=== PATIENT | female | born 1970 | race Caucasian/White ===

== ENCOUNTER 2016-10-31 05:26 | Day surgery (SDC) ==
[2016-10-25 10:19] LABS: HEMATOCRIT 45.5 % (37.0-47.0); HEMOGLOBIN 14.8 g/dL (12.0-16.0); MCHC 32.5 g/dL (33-37); MCV 95.2 FL (81-99); MPV 8.7 FL (7.4-10.4); RBC 4.78 XMIL (4.2-5.4)
[2016-10-25 11:04] LABS: AGAP 13; BUN 5 mg/dL (8-22); CALCIUM 9.3 mg/dL (8.8-10.2); CHLORIDE 102 mmol/L (98-107); COSMO 281; POTASSIUM 3.2 mmol/L (3.5-5.1); SODIUM 143 mmol/L (136-145); TCO2 28 mmol/L (25-35)
[2016-10-31] MEDS ORDERED: REGLAN ONE (05:43)
[2016-10-31] MEDS ORDERED: VALIUM ONE (05:43)
[2016-10-31] MEDS ORDERED: PEPCID ONE (05:43)
[2016-10-31] MEDS ORDERED: LR 1,000 ML ONE ×2 (05:44→10:58)
[2016-10-31] MEDS ORDERED: KEFZOL 1 GM/D5W 50 ML ONE (05:44)
[2016-10-31] MEDS ORDERED: DUONEB (A & A) INH ONE (06:19)
[2016-10-31] MEDS ORDERED: XYLOCAINE 1% ONE (06:40)
[2016-10-31] MEDS ORDERED: MARCAINE 0.25% PF/EPI 1:200,000 ONE (06:40)
--- NOTE | 2016-10-31 07:44 | Diag Imaging Result Document ---
PROCEDURE NAME: CHEST-1 VIEW - 10/31/2016 PORTABLE CHEST X-RAY: COMPARISON: 09/04/2016. FINDINGS: Stable ill-defined infiltrate in the right lung apex. Stable retro hilar pulmonary nodular opacity that is difficult to perceive on chest x-ray. No new or focal infiltrates. No pneumothorax or pleural effusion. IMPRESSION: No acute disease or change from prior.
[2016-10-31] MEDS: MORPHINE ONE ×4 (08:35→08:50)
--- NOTE | 2016-10-31 08:49 | OPERATIVE NOTE ---
PROCEDURE DATE: 10/31/2016 PREOPERATIVE DIAGNOSIS: Left lower lobe lung cancer. POSTOPERATIVE DIAGNOSIS: Left lower lobe lung cancer. PROCEDURE: 1. Mediastinoscopy with mediastinal lymph node biopsy. 2. Bronchoscopy. ESTIMATED BLOOD LOSS: Less than 5 mL. COMPLICATIONS: None. ANESTHESIA: General. SURGEON: John Kumar MD OPERATIVE FINANCIAL ANALYST: MD Dr. Lauri Carlos was present through the bronchoscopy and mediastinoscopy to facilitate identification of anatomy and exposure. OPERATIVE INDICATIONS: A 46-year-old female with a confirmed left lower lobe lung cancer that is resectable. She had some enlarged mediastinal lymph nodes. Bronchoscopy, mediastinoscopy was indicated for further staging and plans for formal resection. OPERATIVE FINDINGS: The distal bronchi of the right upper, right middle, and right lower lobe were all normal with usual anatomy. On the left side, the left upper lobe lingular branches and the left lower lobe bronchi were all normal out to the most distal visualized aspects. There were scant tracheal secretions, but no bronchial plugging. Findings at time of mediastinoscopy: There was an enlarged anthracotic node right at the bifurcation of the mainstem bronchi. There was no other visualized adenopathy noted. Multiple biopsies of this lesion were taken. DESCRIPTION OF PROCEDURE: Risks, benefits, and alternatives were discussed with the patient, she consented to the procedure. She was taken to the operating room, placed in supine position. General anesthesia was induced without complication. After a time-out was performed, we performed bronchoscopy through her single-lumen endotracheal tube, inspecting all lobes of the lungs bilaterally. There were no intraluminal lesions with findings as above. After satisfactory bronchoscopy, her bilateral neck and chest were prepped and draped with Betadine in the usual fashion. We placed her in reverse Trendelenburg position, extended her neck, and placed shoulder bump to facilitate exposure. After again confirming time-out, a low transverse incision was made with electrocautery. We carried this down through the platysma. We divided the strap muscles in the midline pretracheal fascia. We then bluntly entered the mediastinum posterior to the innominate artery, [facility] here, introducing the mediastinoscope. Using the Kittner, we bluntly dissected the tissue off the trachea anteriorly. We went posterior to the innominate. We did see the aortic arch and the azygos vein on the right was easily identified. We went down and were able to clearly identify the lymph node that was enlarged on her previous CT scan. We dissected this out, confirmed it was anthracotic and enlarged. We aspirated this to confirm that it was not a vascular structure, it was not. We then took multiple biopsies, near completely removing this node and passed these off for permanent pathology. We packed the wound with a Ray-Dee gauze, left this for several minutes, it was noted to be hemostatic. We again inspected the wound, there was no bleeding noted. After this, we closed the strap muscles along the midline with interrupted 3-0 Vicryl sutures, closed the platysma transversely with interrupted 3-0 Vicryl sutures, closed the skin with 4-0 Monocryl. Dermabond was applied. She tolerated procedure well, transferred to PACU, where we will get a chest x-ray.
[2016-10-31] MEDS ORDERED: NORCO-7.5 PO PRN (09:19)
[2016-10-31] MEDS ORDERED: ZOFRAN IV PRN (09:19)
[2016-10-31] MEDS ORDERED: DIPRIVAN 1% ONE (09:44)
[2016-10-31] MEDS ORDERED: FENTANYL ONE (09:44)
[2016-10-31] MEDS ORDERED: NORCO-7.5 ONE (09:53)
--- NOTE | 2016-10-31 10:02 | Diag Imaging Result Document ---
PROCEDURE NAME: CHEST-PORTABLE - 10/31/2016 PORTABLE CHEST X-RAY 10/31/2016, 0845 HOURS: COMPARISON: 0644 hours. FINDINGS: Stable infiltrate/scarring at the right apex. No new infiltrates. No pneumothorax or other air collections. Heart size is normal. IMPRESSION: No complication or change from prior.
[2016-10-31 10:16] VITALS: BP 128/88
[2016-10-31] MEDS ORDERED: ZEMURON ONE (10:58)
[2016-10-31] MEDS ORDERED: ROBINUL ONE (10:58)
[2016-10-31] MEDS ORDERED: NEOSTIGMINE ONE (10:58)
[2016-10-31] MEDS ORDERED: XYLOCAINE-MPF 2% ONE (10:58)
[2016-10-31] MEDS ORDERED: ZOFRAN ONE (10:58)
[2016-10-31] MEDS ORDERED: QUELICIN (DOSE) ONE (10:58)
[2016-10-31] MEDS ORDERED: DECADRON ONE (10:58)
== END 2016-10-31 10:40 | disposition home or self-care (01) ==
LOC: OPS 05:26
PROVIDERS: ATTEND Surgery
DX: C34.32 Malignant neoplasm of lower lobe, left bronchus or lung (principal); R59.0 Localized enlarged lymph nodes; Z80.1 Family history of malignant neoplasm of trachea, bronchus and lung; F17.210 Nicotine dependence, cigarettes, uncomplicated; F31.9 Bipolar disorder, unspecified; J44.9 Chronic obstructive pulmonary disease, unspecified; M19.90 Unspecified osteoarthritis, unspecified site; F32.9 Major depressive disorder, single episode, unspecified; G89.29 Other chronic pain; K44.9 Diaphragmatic hernia without obstruction or gangrene; Z79.899 Other long term (current) drug therapy; Z79.1 Long term (current) use of non-steroidal anti-inflammatories (NSAID)
CPT/HCPCS: 71010; 80048; 85027; 88305; J0330; J0690; J1100; J2270; J2405; J3010; J7120; J2710

== ENCOUNTER 2016-11-20 03:37 | Inpatient (IN) ==
--- NOTE | 2016-11-19 13:05 | EKG Report ---
Test Performed on : 11/19/2016 1:05:06 PM Test Reason : PAT Blood Pressure : / mmHG Vent. Rate : 093 BPM Atrial Rate : 093 BPM P-R Int : 144 ms QRS Dur : 076 ms QT Int : 380 ms P-R-T Axes : 075 083 072 degrees QTc Int : 472 ms Normal sinus rhythm. Normal ECG When compared with ECG of 15-APR-2016 06:44, No significant change was found Confirmed by Lb STALLWORTH, Colten Huntley ([id number]) on 11/21/2016 5:34:41 PM
[2016-11-19 13:29] LABS: MANUAL DIFF NEEDED? NO
[2016-11-19 13:43] LABS: BASO% 0.6 % (0.0-0.8); EOS# 0.65 X1000 (0.0-0.7); EOS% 6.5 % (0.0-10.0); HEMATOCRIT 39.6 % (37.0-47.0); HEMOGLOBIN 13.1 g/dL (12.0-16.0); IMM GRAN# 0.05 X1000 (0.0-0.04); IMM GRAN% 0.5 % (0.0-0.5); LYMPH# 3.39 X1000 (1.2-3.4); LYMPH% 34.1 % (20.5-51.1); MCH 31.2 PG (27-31); MCHC 33.1 g/dL (33-37); MCV 94.3 FL (81-99); MONO# 0.79 X1000 (0.11-0.59); MPV 8.5 FL (7.4-10.4); NEUT% 50.3 % (42.2-75.2); PLT 453 X1000 (130-400)
[2016-11-19 14:02] LABS: INR 0.98; PROTIME 10.3 Seconds (9.2-11.7); PTT 28.2 Seconds (22.0-36.0)
--- NOTE | 2016-11-19 14:14 | Diag Imaging Result Document ---
PROCEDURE NAME: CHEST-2 VIEWS - 11/19/2016 COMPARISON: 10/31/2016. FINDINGS: There is stable scarring at the right lung apex. The known nodular density in the medial aspect of the left lower lobe abutting the fissure seen on prior chest CTs is again identified but only on the lateral view. No new consolidations are identified. Cardiac silhouette is stable. IMPRESSION: Stable right apical scarring and nodular density in the left lower lobe seen only on the lateral image. Note that this nodule has been seen on previous chest CTs and has been biopsied in the past.
[2016-11-19 14:28] LABS: AGAP 14; BUN 6 mg/dL (8-22); CALCIUM 8.6 mg/dL (8.8-10.2); CHLORIDE 99 mmol/L (98-107); COSMO 275; POTASSIUM 3.2 mmol/L (3.5-5.1); SODIUM 140 mmol/L (136-145); TCO2 27 mmol/L (25-35)
[2016-11-20] MEDS ORDERED: REGLAN ONE ×2 (06:58→07:37)
[2016-11-20] MEDS ORDERED: KEFZOL 1 GM/D5W 1 GM/50 ML IVPB ONE (06:58)
[2016-11-20] MEDS ORDERED: PEPCID ONE ×2 (06:58→07:37)
[2016-11-20] MEDS ORDERED: LR 1,000 ML ONE (07:38)
[2016-11-20] MEDS ORDERED: DUONEB (A & A) INH ONE ×2 (07:56→12:11)
[2016-11-20] MEDS ORDERED: MARCAINE 0.25% PF ONE (11:10)
[2016-11-20] MEDS ORDERED: EXPAREL 1.3% ONE (11:10)
[2016-11-20] MEDS ORDERED: COLACE PO SCH (12:09)
[2016-11-20 12:23] LABS: URINE CULTURE NEEDED? NO; URINE MICRO REVIEW NEEDED? NO; URINE SOURCE CATH
[2016-11-20 12:26] LABS: BE 2.8 mmoll (-3.0-3.0); BLOOD TYPE ARTERIAL; METHB 1.5 % (0.0-1.5); PCO2(98.6) 40 mmHg (35-45); PO2(98.6) 249 mmHg (60-100); SAMPLE BLOOD; SRATE 10 BPM; THB 11.6 g/dL (11.5-17.4); TVOL 550 mL; pH(98.6) 7.44 (7.35-7.45)
[2016-11-20 12:27] LABS: DRAW SITE OTHER; MODALITY VENTILATOR
[2016-11-20 12:28] LABS: ALLEN TEST NO
[2016-11-20 12:32] LABS: MANUAL DIFF NEEDED? NO
--- NOTE | 2016-11-20 12:33 | OPERATIVE NOTE ---
PROCEDURE DATE: 11/20/2016 PREOPERATIVE DIAGNOSIS: Left lower lobe lung cancer. POSTOPERATIVE DIAGNOSIS: Left lower lobe lung cancer. PROCEDURE PERFORMED: 1. Left lower lobectomy. 2. Bronchoscopy. ESTIMATED BLOOD LOSS: 50 mL. ANESTHESIA: General. COMPLICATIONS: None. DRAINS: Anterior and posterior 32-Slovenian chest tube. HIP HOP ARTIST: Dr. Harris. Dr. Harris was present for the entirety of the case. Facilitated exposure and identification of anatomy. INDICATIONS: This is a 46-year-old female with incidentally noted left lower lobe cancer confirmed to be adenocarcinoma. She underwent staging including mediastinoscopy and bronchoscopy that showed no evidence of metastatic disease. Resection was indicated. Pulmonary function cardiac workup were adequate. OPERATIVE FINDINGS: There was a mass in the left posterior and cephalad lower lobe of lung with no evidence of metastatic disease. OPERATIVE NOTE: Risks, benefits, alternatives discussed with patient. She consented to the procedure. She was taken to the preoperative area where surgery to be performed was confirmed. She was taken to the operating room, placed initially supine and pre incisional antibiotics were administered. She was intubated with a single-lumen tube. Time out performed. After induction of general anesthesia, bronchoscopy was performed. There were some thick secretions left upper and lower lobe. These were suctioned to clear. The right side was visible. There is no evidence of intra bronchial lesions consistent with her previous bronchoscopy. After this there were attempts to convert to a double-lumen tube by anesthesia. A time out was performed as well. However, given her small airways and the smallest double lumen endotracheal tube we had was not possible , so she was reintubated with a single-lumen tube and this was right mainstemmed and was done successfully and reproducibly. After this, we placed her in right lateral decubitus position with an axillary roll and a pad between her knees. All bony prominence were padded and placed in neutral position. The beanbag was inflated she was secured with silk tape. Her left chest was prepped with chlorhexidine solution and draped in usual fashion. A left thoracotomy incision was made after confirming anatomic landmarks and this was carried down to the level the ribs. We counted the rib spaces and entered the 6th intercostal space after dividing the muscle. We will make care to protect the neurovascular bundles, held respirations in the chest in controlled fashion with care to protect underlying structures. There is some inflammatory adhesions that we lysed and we took down the inferior pulmonary ligament with electrocautery up to the level the inferior pulmonary vein. There is near complete fissure. After satisfactory mobilizing of the lung we placed it back in anatomic position. I identified the pulmonary artery within the fissure itself and dissected out the branches to the lower lobe protecting the lingular branch which is readily visualized. There is a cephalad branch that we doubly ligated with a 2-0 silk suture and divided. We then dissected out the main inferior pulmonary artery branch, doubly ligated this and individually ligated the more distal branches leaving a large cuff of the pulmonary artery here. This divided all the arterial branches to the lower lobe and we turned our attention posteriorly dissecting out the pulmonary vein to the lower lobe in its entirety, and we encircled this with a right angle clamp, placed an umbilical tape around this and using a gold load 30 mm Endo HUMZA stapler. We divided this, there was good hemostasis noted and a good healthy cuff. We turned our attention back to the fissure. There were some inflammatory adhesions from where the tumor was to the upper lobe. We divided these this to create a bit of an air leak in the posterior left upper lobe. This was small and not amenable to wedge resection here or suture repair. We turned our attention anteriorly. There was an area that we need to complete the fissure, dissect down the bronchus to the lower lobe and encircled this. There was an area of lung that was divided using a purple load 30 mm stapler here as well. This completed the dissection of the bronchus using a black load 60 mm Endo-HUMZA stapler. We clamped the lower lobe bronchus, withdrew the endotracheal tube and confirmed that the upper lobe did insufflate and divided this. There is good closure and good sealing of the bronchus at this time. We irrigated the chest. There is no leaking from the bronchial stump. Hemostasis was noted. We turned our attention back this air leak in the left posterior upper lobe we used the thrombin gel glue to patch this with significant improvement, if not resolution of this air leak. We also applied this to the bronchial stump and the staple line on the more anterior fissure staple line. The upper lobe inflated well. There some anterior adhesions that we took down to facilitate expansion of the chest cavity. The lung was perfused and a tidaling well. Then approximately 3 rib spaces below the incision placed an anterior an anterior and posterior 32-Slovenian chest tube and secured these with half inch 0- silk sutures. We then turned our attention to closure of the chest. The neurovascular bundle, like I said was protectively injected with Marcaine Exparel solution along the costal bundles starting posteriorly and along the ribs themselves. There is no obvious fracture of the ribs during retraction. We used the self-retaining rib advertising designer for retraction during the case. Three holes are drilled the anteromedial and posteriorly along the 7th rib and using #2 Vicryl sutures, these ribs were encircled per without impingement of the neurovascular bundles and a rib approximator was used and the rib was reapplied approximated. We then closed the muscle with a running # 1 Vicryl suture and the anterior and the superficial fascia with a running 0 Vicryl. We irrigated the superficial wound, closed the skin with basil. Placed our chest tubes to Pleuravac suction device and applied a sterile dressing. She tolerated the procedure well. Given her somnolent state, we elected to transfer to the ICU intubated and plan is to extubate this evening. Chest x-ray and labs will be obtained in the recovery area. I spoke with the family cc: Bruno Kumar MD [facility]
[2016-11-20 12:38] LABS: BASO% 0.3 % (0.0-0.8); EOS# 0.38 X1000 (0.0-0.7); EOS% 3.3 % (0.0-10.0); HEMATOCRIT 34.8 % (37.0-47.0); HEMOGLOBIN 11.6 g/dL (12.0-16.0); IMM GRAN# 0.04 X1000 (0.0-0.04); IMM GRAN% 0.3 % (0.0-0.5); LYMPH# 2.83 X1000 (1.2-3.4); LYMPH% 24.5 % (20.5-51.1); MCH 31.3 PG (27-31); MCHC 33.3 g/dL (33-37); MCV 93.8 FL (81-99); MONO# 0.76 X1000 (0.11-0.59); MONO% 6.6 % (1.7-9.3); MPV 8.4 FL (7.4-10.4); PLT 414 X1000 (130-400); RBC 3.71 XMIL (4.2-5.4)
[2016-11-20 12:46] LABS: UR EPITHELIAL CELLS <10 /HPF (<10); URINE RBC <10 /HPF (<10); URINE WBC <10 /HPF (<10)
[2016-11-20 12:47] LABS: BILIRUBIN URINE NEGATIVE (NEGATIVE); BLOOD URINE TRACE (NEGATIVE); COLOR YELLOW; GLUCOSE URINE NEGATIVE (NEGATIVE); LEUKOCYTES URINE NEGATIVE (NEGATIVE); NITRITE URINE NEGATIVE (NEGATIVE); PH URINE 6.5; PROTEIN URINE NEGATIVE (NEGATIVE); SP GRAVITY URINE < 1.005; TURBIDITY URINE CLEAR (CLEAR); URINE BACTERIA NEGATIVE /HPF; UROBILINOGEN URINE 2 mg/dL (NORMAL)
[2016-11-20 12:49] LABS: INR 1.05; PROTIME 11.1 Seconds (9.2-11.7); PTT 28.1 Seconds (22.0-36.0)
[2016-11-20 12:55] LABS: AGAP 9; BUN 4 mg/dL (8-22); CALCIUM 7.6 mg/dL (8.8-10.2); CHLORIDE 103 mmol/L (98-107); COSMO 271; MAGNESIUM 1.2 mg/dL (1.5-2.7); POTASSIUM 2.6 mmol/L (3.5-5.1); SODIUM 136 mmol/L (136-145); TCO2 24 mmol/L (25-35)
[2016-11-20] MEDS: MORPHINE IV PRN ×5 (13:08→23:55)
[2016-11-20] MEDS: OFIRMEV 1000 MG/ISOTONIC SOLN 1,000 MG/100 ML BOTTLE IV SCH ×3 (13:11→23:55)
[2016-11-20] MEDS: PROTONIX IV SCH (13:11)
[2016-11-20] MEDS ORDERED: COLACE PO PRN (13:11)
--- NOTE | 2016-11-20 13:23 | Diag Imaging Result Document ---
PROCEDURE NAME: CHEST-PORTABLE - 11/20/2016 SINGLE FRONTAL RADIOGRAPH OF THE CHEST: COMPARISON: 11/19/2016. FINDINGS: There is a recently placed ET tube. The tip projects over the trachea and above the rich at about the T3 level. There are new metallic basil overlying the left chest wall, and there has been placement of 2 thoracostomy tubes. One of the tube tips projects over the mid left lung zone. The other projects over the apex. No appreciable pneumothorax can be identified. However, there is a small amount of subcutaneous gas overlying the chest wall on the left. Right apical scarring is again noted. No new consolidations are identified. IMPRESSION: Interval placement of ET tube and dual chest tubes on the left as described.
[2016-11-20] MEDS ORDERED: DIPRIVAN 1% 1,000 MG/100 ML BOTTLE ONE (13:25)
[2016-11-20] MEDS ORDERED: POTASSIUM CHLORIDE 60 MEQ in NS 500 ML IV ONE (13:29)
[2016-11-20] MEDS ORDERED: MAGNESIUM SULFATE IV ONE (13:29)
[2016-11-20] MEDS ORDERED: MAGNESIUM SULFATE 4 GM/S.W.I. 4 GM/100 ML IVPB IV ONE (15:00)
[2016-11-20] MEDS ORDERED: FENTANYL ONE (16:11)
[2016-11-20] MEDS ORDERED: VERSED ONE (16:11)
[2016-11-20] MEDS ORDERED: LUBRIFRESH PM OPH OINTMENT ONE (16:29)
[2016-11-20] MEDS ORDERED: NEO-SYNEPHRINE ONE (16:29)
[2016-11-20] MEDS ORDERED: NORCURON ONE (16:30)
[2016-11-20] MEDS ORDERED: LR 2,000 ML ONE (16:30)
[2016-11-20] MEDS ORDERED: XYLOCAINE-MPF 2% ONE (16:30)
[2016-11-20] MEDS ORDERED: QUELICIN (DOSE) ONE (16:30)
--- NOTE | 2016-11-20 18:23 | CONSULTATION ---
DATE OF CONSULTATION: 11/20/2016 REQUESTING PHYSICIAN: Dr. John Kumar. REASON FOR CONSULTATION: Respiratory failure after surgery. HISTORY OF PRESENT ILLNESS: Ms. Mariee is a 46-year-old white female with greater than 60 pack year history for tobacco, ongoing tobacco use, history of bipolar disorder, who was diagnosed with an adenocarcinoma involving the left lower lobe 09/04/2016. She subsequently underwent a mediastinoscopy which was negative. PET scan by report revealed no evidence of metastatic disease. The patient was admitted to the hospital and underwent a left lower lobectomy today. She was somnolent by report earlier today possibly related to her medications and she showed up to the hospital 2 hours late. Surgery was performed and she has now been transferred back to the intensive care unit. PAST MEDICAL HISTORY: 1. Recurrent bipolar disorder with psychotic features with prior admission to [facility]. 2. COPD with ongoing tobacco use. 3. Status post cholecystectomy. 4. Bilateral tubal ligation with partial hysterectomy. SOCIAL HISTORY: Ongoing tobacco use. Occasional alcohol use noted in prior admission. FAMILY HISTORY: Positive for schizophrenia, depression, arthritis and lung cancer. REVIEW OF SYSTEMS: Cannot be obtained. PHYSICAL EXAMINATION: General: Reveals a thin white female who appears older than her stated age of 46. Vital signs: BP 142/94, heart rate 77, respiration rate 16, oxygen saturation 100%. HEENT: Pupils are equal and reactive. Oropharynx evaluation is limited with endotracheal tube in place. Neck: Supple. Chest: Chest x-ray reveals 2 chest tubes in good position. There is thin serosanguineous fluid draining and has movement with respiration. Cardiac Exam: Regular rate. Abdomen: Soft without hepatosplenomegaly. Extremities: Without edema. LABORATORIES: Chest x-ray reveals good reexpansion of the remaining lung on the left with chest tubes in good position. Arterial blood gas reveals pH 7.44, pCO2 of 40, PO2 of 249. Carboxyhemoglobin level in September of this year was as high as 11.6, carboxyhemoglobin level following surgery remains slightly elevated at 2.8. IMPRESSION: A 46-year-old with lung cancer status post left lower lobectomy, ongoing tobacco use, bipolar disorder. She has had surgery earlier today. She was late for her surgery and there was a concern that she may have over-medicated herself. This would not be unexpected for a patient with her underlying psychiatric history. It is currently 6 o'clock in the evening and I am reluctant to stop her medications and evaluate her for extubation at this juncture. She will likely need to be followed closely and with frequent medication adjustments immediately following extubation. RECOMMENDATION: 1. Continue mechanical ventilation through the evening. 2. Evaluate for extubation 1st thing tomorrow morning. 3. Check sputum for C and S. 4. Continue bronchodilators. 5. Additional recommendations pending hospital course. cc: MD Bruno Alejandre MD
[2016-11-20] MEDS: DIPRIVAN 1% 1,000 MG/100 ML BOTTLE IV SCH (18:32)
[2016-11-20] MEDS: LR 1,000 ML IV SCH (19:46)
[2016-11-20] MEDS: DUONEB (A & A) INH SCH (22:49)
[2016-11-21] MEDS: DIPRIVAN 1% 1,000 MG/100 ML BOTTLE IV SCH ×2 (00:37→05:17)
[2016-11-21] MEDS: DUONEB (A & A) INH SCH ×4 (03:32→18:52)
[2016-11-21] MEDS: MORPHINE IV PRN ×3 (03:36→21:48)
[2016-11-21 04:45] LABS: ALLEN TEST YES; BE 1.9 mmoll (-3.0-3.0); BLOOD TYPE ARTERIAL; DRAW SITE R RADIAL; METHB 1.4 % (0.0-1.5); O2(CT) 16.9 mL/dL (15.0-23.0); PCO2(98.6) 41 mmHg (35-45); PO2(98.6) 74 mmHg (60-100); SAMPLE BLOOD; SAO2 97.9 % (95.0-100.0); SRATE 10 BPM; THB 12.7 g/dL (11.5-17.4); TVOL 500 mL; pH(98.6) 7.42 (7.35-7.45)
[2016-11-21 04:46] LABS: MODALITY VENTILATOR
[2016-11-21] MEDS: OFIRMEV 1000 MG/ISOTONIC SOLN 1,000 MG/100 ML BOTTLE IV SCH ×4 (05:17→23:47)
[2016-11-21 05:51] LABS: MANUAL DIFF NEEDED? NO
[2016-11-21 05:53] LABS: BASO% 0.1 % (0.0-0.8); EOS# 0.06 X1000 (0.0-0.7); EOS% 0.4 % (0.0-10.0); HEMATOCRIT 38.1 % (37.0-47.0); HEMOGLOBIN 12.8 g/dL (12.0-16.0); IMM GRAN# 0.04 X1000 (0.0-0.04); IMM GRAN% 0.2 % (0.0-0.5); LYMPH# 1.79 X1000 (1.2-3.4); LYMPH% 10.7 % (20.5-51.1); MCH 31.4 PG (27-31); MCHC 33.6 g/dL (33-37); MCV 93.6 FL (81-99); MONO# 0.95 X1000 (0.11-0.59); MONO% 5.7 % (1.7-9.3); MPV 9.1 FL (7.4-10.4); NEUT% 82.9 % (42.2-75.2); PLT 438 X1000 (130-400); RBC 4.07 XMIL (4.2-5.4)
[2016-11-21 06:03] LABS: INR 1.01; PROTIME 10.6 Seconds (9.2-11.7); PTT 23.8 Seconds (22.0-36.0)
[2016-11-21 06:32] LABS: AGAP 12; BUN 3 mg/dL (8-22); CALCIUM 7.8 mg/dL (8.8-10.2); CHLORIDE 103 mmol/L (98-107); COSMO 276; MAGNESIUM 1.8 mg/dL (1.5-2.7); POTASSIUM 3.3 mmol/L (3.5-5.1); SODIUM 139 mmol/L (136-145); TCO2 24 mmol/L (25-35)
[2016-11-21] MEDS ORDERED: POTASSIUM CHLORIDE 40 MEQ/SWI 40 MEQ/100 ML IVPB IV ONE (07:13)
[2016-11-21] MEDS ORDERED: MAGNESIUM SULFATE IM ONE (07:13)
--- NOTE | 2016-11-21 07:52 | Diag Imaging Result Document ---
PROCEDURE NAME: CHEST-PORTABLE - 11/21/2016 SINGLE FRONTAL RADIOGRAPH OF THE CHEST: COMPARISON: 11/20/2016. FINDINGS: ET tube and dual left chest tubes are in approximately stable position. There has been development of a small left pleural effusion at the base. There is adjacent atelectasis and/or infiltrate. No other new consolidation is identified. Cardiac silhouette is stable. IMPRESSION: Development of a small left basilar effusion with adjacent atelectasis and/or infiltrate. It is essentially stable, otherwise.
[2016-11-21] MEDS ORDERED: MAGNESIUM SULFATE 2 GM/S.W.I. 2 GM/50 ML IVPB IV ONE (08:00)
--- NOTE | 2016-11-21 08:00 | PROGRESS NOTE ---
DATE: 11/21/2016 SUBJECTIVE: Hemodynamically stable overnight. Sedation was somewhat of an issue at times but she is resting comfortably on propofol with p.r.n. morphine this morning. OBJECTIVE: Vital Signs: Afebrile. No tachycardia. Heart rate was mildly elevated at 102 this morning but it was normal when I was in the room this morning. Blood pressure 160/102. Oxygen saturation 98% on 30%, PEEP of 6. General: She is sedated. Chest: Left chest dressing is clean, dry, intact. Is and Os: There is minimal serosanguineous drainage, 100 out of the posterior tube, less than 30 out of the anterior tube, serosanguineous. No air leak to -20 suction. Laboratory Data: White count 16, hematocrit is stable at 38, platelets are 438,000. ABG, 7.42, 41, 74, 26.3. Potassium is 3.3. Magnesium is 1.8 despite repletion. Creatinine 0.5. ASSESSMENT/PLAN: A 46-year-old female with left lower lobe lung cancer, status post left lower lobectomy. She is doing well. No leak on her tube. Minimal ventilator settings with good gas exchange. Minimal chest tube output. Chest x-ray looks good. There is good expansion. There is a little bit of an effusion at the base, not unexpected. The patient will be ready for extubation this morning. Dr. Beal is following. Otherwise, she will need aggressive pulmonary toileting as her pulmonary function tests were marginal coming into this. I have repleted her electrolytes. We will begin to advance her diet once extubated successfully. I appreciate Dr. Beal's help. cc: Bruno Kumar MD
[2016-11-21] MEDS ORDERED: MORPHINE IV STA (08:13)
[2016-11-21] MEDS ORDERED: MORPHINE IV ONE (08:38)
[2016-11-21] MEDS ORDERED: BENADRYL IV PRN (09:21)
[2016-11-21] MEDS ORDERED: NARCAN IV PRN (09:21)
[2016-11-21] MEDS: MORPHINE PCA IV PRN ×4 (10:16→23:45)
[2016-11-21] MEDS: LR 1,000 ML IV SCH ×2 (10:16→23:51)
[2016-11-21] MEDS: PROZAC PO SCH (10:33)
[2016-11-21] MEDS ORDERED: POTASSIUM CHLORIDE 40 MEQ in 1/2 NS 250 ML IV ONE (11:15)
[2016-11-21] MEDS: PROTONIX IV SCH (12:45)
[2016-11-22] MEDS: MORPHINE IV PRN ×6 (01:54→22:58)
[2016-11-22] MEDS ORDERED: ATIVAN IV ONE (02:01)
[2016-11-22] MEDS: DUONEB (A & A) INH SCH ×5 (03:08→22:14)
[2016-11-22 03:56] LABS: ALLEN TEST YES; BE 3.4 mmoll (-3.0-3.0); BLOOD TYPE ARTERIAL; DRAW SITE R RADIAL; METHB 1.8 % (0.0-1.5); O2(CT) 16.1 mL/dL (15.0-23.0); PO2(98.6) 106 mmHg (60-100); SAMPLE BLOOD; SAO2 99.5 % (95.0-100.0); THB 11.9 g/dL (11.5-17.4); pH(98.6) 7.32 (7.35-7.45)
[2016-11-22 03:59] LABS: MODALITY BI PAP; PCO2(98.6) 60 mmHg (35-45)
[2016-11-22] MEDS ORDERED: STERILE WATER INJ. INJ ONE (04:20)
[2016-11-22] MEDS ORDERED: GEODON IM ONE (04:20)
[2016-11-22] MEDS: OFIRMEV 1000 MG/ISOTONIC SOLN 1,000 MG/100 ML BOTTLE IV SCH ×3 (05:52→17:02)
[2016-11-22 06:39] LABS: ALLEN TEST YES; BE 3.8 mmoll (-3.0-3.0); BLOOD TYPE ARTERIAL; DRAW SITE R RADIAL; METHB 1.6 % (0.0-1.5); O2(CT) 16.1 mL/dL (15.0-23.0); PO2(98.6) 84 mmHg (60-100); SAMPLE BLOOD; SAO2 98.2 % (95.0-100.0); pH(98.6) 7.33 (7.35-7.45)
[2016-11-22 06:41] LABS: MODALITY BI PAP; PCO2(98.6) 59 mmHg (35-45)
[2016-11-22] MEDS ORDERED: QUELICIN ONE (06:55)
[2016-11-22] MEDS ORDERED: AMIDATE ONE (06:55)
[2016-11-22] MEDS: DIPRIVAN 1% 1,000 MG/100 ML BOTTLE ONE ×2 (07:00→07:05)
[2016-11-22] MEDS ORDERED: NORCURON ONE (07:14)
[2016-11-22 07:15] LABS: HEMATOCRIT 32.4 % (37.0-47.0); HEMOGLOBIN 10.4 g/dL (12.0-16.0); MCH 31.1 PG (27-31); MCHC 32.1 g/dL (33-37); MPV 8.6 FL (7.4-10.4); RBC 3.34 XMIL (4.2-5.4)
[2016-11-22] MEDS ORDERED: SODIUM CHLORIDE 0.9% 10 ML ONE (07:15)
--- NOTE | 2016-11-22 07:22 | Diag Imaging Result Document ---
PROCEDURE NAME: CHEST-PORTABLE - 11/22/2016 PORTABLE CHEST X-RAY: COMPARISON: 11/21/2016. FINDINGS: Stable double left chest tubes. There is near-complete opacification of the left hemithorax. There is a significant worsening, ill-defined infiltrate throughout the right lung. No significant mediastinal shift. IMPRESSION: Significant worsening from prior. Near-complete opacification of the left hemithorax is worrisome for atelectasis associated with mucus plugging. Worsening infiltrate throughout the right lung as well, probably edema.
[2016-11-22] MEDS ORDERED: VANCOMYCIN IV PER PHARMACY MISC SCH (07:45)
--- NOTE | 2016-11-22 08:30 | PROGRESS NOTE ---
DATE: 11/22/2016 SUBJECTIVE: I was called this morning. The patient had developed some altered mental status, agitation overnight. She was given Ativan for concern for withdrawal symptoms with history of benzodiazepines and likely alcohol abuse in the past and was also given some Geodon. She had persistent agitation, worsening of her respiratory status related to this. Started on BiPAP 100%, and ABG showed CO2 retention. Attempted aggressive pulmonary toileting. Breathing treatments failed to improve her respiratory status at the bed side. She was ultimately intubated. Chest x- ray showed mucous plugging with dense consolidation of her left lobe. OBJECTIVE: Vital Signs: She has been afebrile at 97.0 temperature, pulse in the low 100s. Blood pressure 100/64. Oxygen saturation: Would desaturate to the low to mid 80s. All flow, however, was maintained in the low 90s on 100% BiPAP. General: She is agitated. Not following commands, but was alert and is protecting her airway. Cardiovascular: Sinus tach. Pulmonary: Tachypneic. Agitated, shallow respirations. Not participating in pulmonary toilet. Chest: Left chest dressings are clean, dry, and intact. Chest tubes with serosanguineous output. Minimal amounts, 175 recorded out of #1 tube and 140 out of #2. This is serous. No air leak noted. Both are to -20 suction. Extremities: No lower extremity edema. Integument: Otherwise warm and dry. LABS: White count is 17, hematocrit is down to 32. ABG this morning 7.33, 59, 84, 27 with a base excess of 3.8. This was just before intubation. ASSESSMENT AND PLAN: 1. This is a 46-year-old female, status post left lower lobectomy, now postop day 2. 2. She has had worsening of her mental status. She does have a history of bipolar disorder. 3. Chronic pain requiring high-dose narcotics. 4. Anxiety. 5. Chronic benzodiazepine use. It appears, based on her chest x-ray, that she has had mucous plugging of her left lung. Will proceed with intubation and bronchoscopy. Intubation performed by anesthesia. She was given etomidate, succinylcholine and a 7.0 tube, and was intubated without difficulty. No significant hypotension or complications developed. She had end-tidal CO2 and normal airway pressures. Attempts to contact the family throughout this were unsuccessful. They were not readily available and this was performed in an emergent fashion. Procedural note for bronchoscopy to follow. Will plan to protect BAL at the time of the bronchoscopy and initiate antibiotic therapy for presumed pneumonia and continue ventilator support. cc: Bruno Kumar MD
--- NOTE | 2016-11-22 08:35 | OPERATIVE NOTE ---
PROCEDURE DATE: 11/22/2016 PREOPERATIVE DIAGNOSES: 1. Respiratory failure. 2. Left lung mucous plugging. POSTOPERATIVE DIAGNOSES: 1. Respiratory failure. 2. Left lung mucous plugging. PROCEDURE PERFORMED: Bronchoscopy with bronchoalveolar lavage. PROVIDER: Bruno Kumar MD ESTIMATED BLOOD LOSS: Zero. COMPLICATIONS: Zero. INDICATIONS: This is a 46-year-old female, status post left lower lobectomy for adenocarcinoma of the lung. She developed worsening respiratory status. One chest x-ray showed dense consolidation and plugging of her left lung, and bronchoscopy was indicated after intubation. OPERATIVE FINDINGS: Dense mucous plugging of the left upper lobe and lingula branches of the left side. There was good closure of the left lower lobe bronchus with a visualized staple line and no necrosis here. Right lung was clear. SPECIMENS: Bronchoalveolar lavage from left upper lobe. OPERATIVE NOTE: The patient was emergently intubated. Respiratory failure and chest x-ray showed mucous plugging. As such, emergent intubation and bronchoscopy was indicated. Family was not available, despite multiple attempts to contact. As such, we proceeded with emergent bronchoscopy. A time-out was performed between nursing and surgical staff and all agreed. It was confirmed that she was on a ventilator, rate and 100% Fi02. She was oxygenating well. She was on full telemetry monitoring with blood pressure, telemetry, and pulse ox monitoring. We did redose vecuronium 10 mg prior to starting the procedure. The endotracheal tube adapter was placed. The bronchoscope was advanced into the left lung. The trachea appeared normal. The left upper lobe showed dense mucous plugging of the lingular and upper lobe branches. These the suctioned until clear. Sterile water was flushed, suctioned out, trapped in a Lukens trap, and sent for Gram stain and culture. The left lower lobe bronchus was well occluded with no necrosis here. We then inspected the right upper, right middle, and right lower lobe. These were all clear. We confirmed that the endotracheal tube was in good position at the conclusion of the case. There were no identified complications. She tolerated it well. There was no change in her vital signs or pulse ox throughout this procedure. Stat chest x-ray and ABG will be ordered. Following, we will begin to wean her ventilator support over the next couple hours. cc: Bruno Kumar MD [facility]
[2016-11-22] MEDS: ZOSYN 3.375 GM/NS 3.375 GM/50 ML IVPB IV SCH ×3 (08:36→20:01)
[2016-11-22] MEDS: D5 1/2 NS + KCL 20 MEQ 1,000 ML IV SCH ×2 (08:36→18:19)
[2016-11-22] MEDS ORDERED: VANCOMYCIN 1.65 GM in NS 250 ML IV ONE (09:00)
[2016-11-22 09:04] LABS: AGAP 10; ALBUMIN 2.3 g/dL (3.5-5.0); ALKALINE PHOSPHATASE 123 U/L (32-104); BUN 4 mg/dL (8-22); CALCIUM 7.6 mg/dL (8.8-10.2); CHLORIDE 102 mmol/L (98-107); COSMO 276; GOT 30 U/L (10-30); GPT 8 U/L (10-36); MAGNESIUM 1.6 mg/dL (1.5-2.7); POTASSIUM 3.7 mmol/L (3.5-5.1); SODIUM 140 mmol/L (136-145); TCO2 28 mmol/L (25-35); TOTAL BILIRUBIN 0.93 mg/dL (0.20-1.00); TOTAL PROTEIN 5.1 g/dL (6.3-8.3)
--- NOTE | 2016-11-22 09:04 | Diag Imaging Result Document ---
PROCEDURE NAME: CHEST-PORTABLE - 11/22/2016 AP PORTABLE CHEST, 11/22/2016 AT 0800 HOURS: FINDINGS: There is an endotracheal tube with its tip at the thoracic inlet and 2 chest tubes in the left hemithorax. There is volume loss on the left. There is extensive alveolar opacification throughout the left lung. There appears to be more volume loss but slightly better pneumatization in the left lung since 11/22/2016. There are patchy alveolar opacities in the right upper and lower lobes consistent with pulmonary edema. The endotracheal tube is at the thoracic inlet. IMPRESSION: Atelectasis and/or pneumonia in the left lung. Postsurgical changes on the left. Patchy pulmonary edema in the right upper and lower lobes.
[2016-11-22] MEDS: PROZAC PO SCH (09:44)
[2016-11-22] MEDS: ATIVAN IV PRN ×3 (09:54→23:14)
[2016-11-22 10:10] LABS: INR 1.11; PROTIME 11.7 Seconds (9.2-11.7)
[2016-11-22 10:17] LABS: ALLEN TEST YES; BE 3.2 mmoll (-3.0-3.0); BLOOD TYPE ARTERIAL; DRAW SITE R RADIAL; METHB 0.7 % (0.0-1.5); O2(CT) 15.9 mL/dL (15.0-23.0); PO2(98.6) 54 mmHg (60-100); SAMPLE BLOOD; SRATE 16 BPM; THB 12.5 g/dL (11.5-17.4); TVOL 400 mL; pH(98.6) 7.37 (7.35-7.45)
[2016-11-22 10:18] LABS: MODALITY VENTILATOR; PCO2(98.6) 51 mmHg (35-45)
[2016-11-22] MEDS ORDERED: NS 250 ML ONE (10:25)
--- NOTE | 2016-11-22 11:05 | CONSULTATION ---
DATE OF CONSULTATION: 11/22/2016 CONSULTING PHYSICIAN: Dr. John Kumar. CONSULTING REASON: Possible opiate withdrawal. HISTORY OF PRESENT ILLNESS: Ms. Mariee is a 46-year-old, female with a history of chronic pain, on chronic opiate therapy, depression and bipolar disorder, and a recent diagnosis with adenocarcinoma of the left lower lung. She was admitted to the hospital yesterday for a scheduled bronchoscopy and left lower lobectomy. This was performed by Dr. Beal, Dr. Kumar, and Dr. Harris. She was intubated for the bronchoscopy. She had successful bronchoscopy and left lower lobectomy, and had chest tubes placed by surgery. She was transferred to the ICU and overnight the patient began becoming agitated with tachycardia and she was bucking the ventilator. We were consulted for possible withdrawal as she has a history of chronic narcotic therapy. This morning, a chest x-ray was consistent with mucus plugging on the left. Dr. Kumar subsequently performed another bronchoscopy and the patient was intubated. Bronchoscopy revealed fairly severe mucous plugging in the left lung. This was suctioned until clear. Dr. Beal is following for pulmonary and critical care management. The patient is on broad-spectrum antibiotics. Currently, she is intubated and on high doses of propofol but is still awake and fighting the ventilator. She has p.r.n. morphine and Ativan frequently. Her vital signs are stable. We have been asked to follow along for possible opiate withdrawal. PAST MEDICAL HISTORY: 1. Chronic pain, on chronic narcotic therapy. 2. COPD. 3. Nicotine dependence. 4. Bipolar and depression. 5. Recent bronchoscopy and left lower lobectomy. 6. Recent admission to [facility] for psychotic features. SURGICAL HISTORY: She has had a cholecystectomy, bilateral tubal ligation with partial hysterectomy, and a hemorrhoidectomy. SOCIAL HISTORY: The patient smokes a pack a day. Per record review, she uses heavy amounts of prescribed narcotics but does not appear to have any illicit history of drug use. It looks like she also has occasional alcohol use. FAMILY HISTORY: Significant for schizophrenia, depression, lung cancer, and arthritis. REVIEW OF SYSTEMS: Unable to be obtained currently secondary to intubation. HOME MEDICATIONS: Xanax 0.25 mg p.o. as needed, Prozac 20 mg daily, oxycodone 30 mg 4 times a day, phenazopyridine 95 mg t.i.d., Seroquel 200 mg at bedtime. ALLERGIES: Aspirin, codeine, and Lasix. PHYSICAL EXAMINATION: Vital Signs: Blood pressure is 100/64, heart rate is 101, respiratory rate is 16, O2 saturation 99% on mechanical ventilation. Temperature is 97 degrees. General: This is a chronically ill-appearing, 46-year-old, female, lying in the hospital bed, intubated and in somewhat mild to moderate distress. Neurologic: The patient is actually awake with her eyes open spontaneously. She did follow commands and there does appear to be no focal deficits. HEENT: Head is atraumatic and normocephalic. Her pupils are equal, round, and reactive to light. Oral mucosa is dry. ET tube is noted. Trachea is midline. Chest: Severely diminished throughout with crackles and wheezes over the entire left lung zone. Chest tubes with dressings clean, dry, and intact noted to the left lung. CV: Tachycardic but regular. S1 and S2 are noted. GI: Soft and nondistended. Bowel sounds are hypoactive. Extremities: Without edema, clubbing, or cyanosis. Pulses are palpable bilaterally. LABORATORY DATA: A.m. labs, WBC 17.83, hemoglobin 10, hematocrit 32.4, platelet count is 304,000. PT 11.7, INR 1.11. PH 7.37, CO2 51, O2 54, bicarb 27.3. Sodium 140, potassium 3.7, chloride 102, CO2 28, anion gap 10, BUN 4, creatinine 0.4, calcium 7.6, phosphorus 1.9. Magnesium 1.6. Total bilirubin 0.93, ALT 8, alkaline phosphatase 123. Protein 5.1. UA is negative for any acute process. ASSESSMENT AND PLAN: 1. Acute hypoxemic respiratory failure: Multifactorial. Dr. Beal is following for ventilator management. Dr. Kumar performed a bronchoscopy earlier today with successful removal of mucous plugging. The patient is also on antibiotics and breathing treatments for apparent pneumonia as well. We will continue to follow with chest x-rays and arterial blood gases daily, and defer any ventilator management to pulmonary critical care. 2. Opioid withdrawal: The patient is currently receiving adequate withdrawal medications. We will monitor this closely. If she continues to need high doses of opiates intravenous push, we would consider an intravenous drip. 3. Chronic obstructive pulmonary disease: Continuing management per pulmonary with antibiotics, breathing treatments, and aggressive pulmonary toilet. 4. Worsening anemia: Likely secondary to recent lobectomy. We are going to check iron studies, and trend her hemoglobin and hematocrit daily. We will treat accordingly. 5. Nicotine dependence: We will also place the patient on nicotine patch. 6. History of bipolar and depression: Continue her home medications down the nasogastric tube once that is placed. 7. Deep venous thrombosis prophylaxis will be provided with sequential compression devices and TEDs given her recent lobectomy and anemia. She is also on Protonix for intensive care unit prophylaxis. We would like to thank you for this consultation. We will follow along with you. Dictated by MAGALI Medeiros for Jesse Riddle MD cc: MAGALI Medeiros MD R. Tyler Harney, MD
[2016-11-22] MEDS: DIPRIVAN 1% 1,000 MG/100 ML BOTTLE IV SCH ×4 (11:27→23:29)
[2016-11-22 11:28] LABS: IRON SATURATION 13 %; TIBC 212 ug/dL; TOTAL IRON 28 ug/dL (49-151); UNBOUND IRON 184 ug/dL (112-346)
[2016-11-22 11:29] LABS: FREE T4 0.82 ng/dL (0.93-1.70)
[2016-11-22] MEDS: PROTONIX IV SCH (12:30)
[2016-11-22] MEDS: SODIUM CHLORIDE 0.9% INJ SCH (12:30)
[2016-11-22] MEDS: NICODERM PATCH TD SCH (12:30)
--- NOTE | 2016-11-22 12:46 | Diag Imaging Result Document ---
PROCEDURE NAME: CHEST/ABD TUBE PLACEMENT - 11/22/2016 AP CHEST AND ABDOMEN FOR NG TUBE PLACEMENT: FINDINGS: The NG tube tip is in the distal stomach or duodenum. The 2 chest tubes remain in place on the left. There is apparently some improvement in pneumatization of the left lung compared to the previous study of 0800 hours. IMPRESSION: Improved pneumonia or pulmonary edema on the left.
[2016-11-22] MEDS: NEUTRA-PHOS PO SCH ×2 (15:00→18:08)
[2016-11-22] MEDS: MUCOMYST 20% INH SCH ×2 (18:47)
[2016-11-22] MEDS: VANCOMYCIN 1.25 GM in NS 250 ML IV SCH (21:14)
[2016-11-23] MEDS: OFIRMEV 1000 MG/ISOTONIC SOLN 1,000 MG/100 ML BOTTLE IV SCH ×5 (00:03→17:27)
[2016-11-23] MEDS: MORPHINE IV PRN ×5 (02:04→20:28)
[2016-11-23] MEDS: ZOSYN 3.375 GM/NS 3.375 GM/50 ML IVPB IV SCH ×4 (02:06→19:38)
[2016-11-23] MEDS: DUONEB (A & A) INH SCH ×6 (02:33→23:28)
[2016-11-23 04:03] LABS: ALLEN TEST YES; BE 2.7 mmoll (-3.0-3.0); BLOOD TYPE ARTERIAL; DRAW SITE R RADIAL; METHB 1.7 % (0.0-1.5); O2(CT) 16.3 mL/dL (15.0-23.0); PO2(98.6) 211 mmHg (60-100); SAMPLE BLOOD; SAO2 99.5 % (95.0-100.0); SRATE 16 BPM; THB 11.7 g/dL (11.5-17.4); TVOL 400 mL; pH(98.6) 7.35 (7.35-7.45)
[2016-11-23 04:05] LABS: MODALITY VENTILATOR; PCO2(98.6) 53 mmHg (35-45)
[2016-11-23] MEDS: ATIVAN IV PRN ×3 (04:34→20:28)
[2016-11-23] MEDS: D5 1/2 NS + KCL 20 MEQ 1,000 ML IV SCH ×3 (04:41→17:31)
[2016-11-23] MEDS: DIPRIVAN 1% 1,000 MG/100 ML BOTTLE IV SCH ×4 (04:46→20:27)
[2016-11-23 05:04] LABS: MANUAL DIFF NEEDED? NO
[2016-11-23 05:06] LABS: BASO% 0.2 % (0.0-0.8); EOS# 0.66 X1000 (0.0-0.7); EOS% 4.5 % (0.0-10.0); HEMATOCRIT 33.5 % (37.0-47.0); HEMOGLOBIN 10.6 g/dL (12.0-16.0); IMM GRAN# 0.04 X1000 (0.0-0.04); IMM GRAN% 0.3 % (0.0-0.5); LYMPH# 1.33 X1000 (1.2-3.4); MCH 30.7 PG (27-31); MCHC 31.6 g/dL (33-37); MCV 97.1 FL (81-99); MONO# 0.59 X1000 (0.11-0.59); MPV 9.3 FL (7.4-10.4); PLT 351 X1000 (130-400); RBC 3.45 XMIL (4.2-5.4)
[2016-11-23 05:24] LABS: AGAP 10; ALKALINE PHOSPHATASE 120 U/L (32-104); BUN 5 mg/dL (8-22); CALCIUM 7.6 mg/dL (8.8-10.2); CHLORIDE 106 mmol/L (98-107); COSMO 283; GOT 31 U/L (10-30); GPT 9 U/L (10-36); MAGNESIUM 1.5 mg/dL (1.5-2.7); POTASSIUM 3.5 mmol/L (3.5-5.1); SODIUM 142 mmol/L (136-145); TCO2 26 mmol/L (25-35); TOTAL BILIRUBIN 0.37 mg/dL (0.20-1.00); TOTAL PROTEIN 5.2 g/dL (6.3-8.3)
--- NOTE | 2016-11-23 07:59 | Diag Imaging Result Document ---
PROCEDURE NAME: CHEST-PORTABLE - 11/23/2016 SINGLE FRONTAL RADIOGRAPH OF THE CHEST: COMPARISON: 11/22/2016. FINDINGS: The ET tube is in stable position. There has apparently been placement of a left PICC line. The tip appears to project just below the atriocaval junction and is likely in the right atrium. An NG tube projects below the diaphragm and out of the field of view. Dual left chest tube is stable. Patchy infiltrates on the right and infiltrate and/or atelectasis at the left lung base is stable. Cardiac silhouette is stable. IMPRESSION: 1. Placement of left PICC line with the tip likely just within the right atrium. 2. Otherwise, essentially stable chest.
[2016-11-23] MEDS: MUCOMYST 20% INH SCH ×2 (08:21→19:44)
[2016-11-23] MEDS: VANCOMYCIN 1.25 GM in NS 250 ML IV SCH ×2 (08:47→21:39)
[2016-11-23] MEDS: NICODERM PATCH TD SCH (08:48)
[2016-11-23] MEDS: PROZAC PO SCH (08:48)
--- NOTE | 2016-11-23 10:19 | PROGRESS NOTE ---
DATE: 11/23/2016 SUBJECTIVE: Hemodynamically stable overnight. Improved agitation, on the ventilator with weaning settings. OBJECTIVE: Vital Signs: Temperature is 99.5 degrees, pulse is low 100s, blood pressure 102/59, oxygen saturation is 100%. She is on 60%, PEEP of 8. General: She is sedated , mildly agitated appearing in the bed, kind of twisting. Chest: Left chest, the dressing is clean, dry, and intact. Chest tube output is serous. There are no air leaks, they are to -20 suction. The posterior tube is putting out more than the anterior tube, but even then it has put out right at 1 liter since it has been in. Extremities: No lower extremity edema. DIAGNOSTIC DATA: White count is down to 14; hematocrit 33, which has been stable; platelets 351,000. ABG 7.35, 53, 211, 27. Creatinine 0.4, potassium is 3.5, magnesium is 1.5. ASSESSMENT AND PLAN: A 46-year-old female, status post left lower lobectomy, reintubated for mucous plugging in the left upper lobe, now status post bronchoscopy. Chest x- ray shows good expansion of the left lung. No significant pneumothorax. Hazy opacity in the right lower lung base. Bronchoalveolar lavage specimens obtained at the time of the bronchoalveolar lavage show normal minh currently, but the final results are pending. She is on antibiotics for presumptive pneumonia. 1. She is on nutritional support. We will continue this. 2. She is on PPI and Lovenox. . 3. She has a Padilla catheter in place while she is intubated. 4. I have water sealed her chest tubes, and we check a chest x-ray at noon, but I will begin to decrease her IV fluids since she is on tube feeds. Hopefully, we can wean her ventilator today, and if her mental status allows, we can plan for extubation maybe tomorrow. 5. She is on Mucomyst, A and A nebulizers. 6. She is given p.r.n. morphine for pain and Ofirmev. 7. She is on her Prozac. 8. I will resume her Seroquel today. cc: Bruno Kumar MD MTDD
[2016-11-23 10:21] LABS: HEPATITIS PROFILE ACUTE SEE COMMENTS
[2016-11-23] MEDS ORDERED: POTASSIUM PHOSPHATE 21 MMOL in NS 250 ML IV ONE (11:30)
--- NOTE | 2016-11-23 11:57 | PROGRESS NOTE ---
DATE: 11/23/2016 SUBJECTIVE: This patient is still on mechanical ventilation and sedated, no acute events overnight. The urine output is adequate and she is tolerating the tube feeding. Pulmonary Department is following this patient as well as Surgery Department. OBJECTIVE: Vital Signs: Temperature 98.7 degrees, pulse 101, respiratory rate 17, blood pressure 137/102 O2 saturation 100% on mechanical ventilation. 70% oxygen flow. No clubbing, no all were normal no hole but will go up to 0 point we will go home with home we will hold. HEENT: Head normocephalic. No trauma. PERRLA. Neck: Supple. No JVD. No masses. Central trachea. Chest: The left side has a dressing that is clean. I do not see any abnormality. There is a serous drainage from the chest tube. Decreased breath sounds at the level of the left lower part of the chest and rhonchi bilaterally but mostly at the level of the right lower lung and left upper lobe lung. Abdomen: Soft, nontender, nondistended. No hepatosplenomegaly. Extremities: No edema. No clubbing. No cyanosis. Neurological: The patient is sedated and intubated. LABORATORY: WBC 14.7, hemoglobin 10.6, hematocrit 33.5, platelets 351,000, sodium 142, potassium 3.5, chloride 106, bicarbonate 26, BUN 5, creatinine 0.4, glucose 147, calcium 7.6, phosphorus 1.8. ASSESSMENT AND PLAN: 1. Left lower lung cancer status post left lower lobectomy, this patient has been reintubated secondary to mucus plugging in the left upper lobe, now status post bronchoscopy. Chest x-ray looks a little bit better compared with yesterday. We will continue with the same management for now. The pulmonary department is following this patient. 2. Acute hypoxemic respiratory failure. This is multifactorial. Continue with mechanical ventilation. 3. Opioid withdrawal. This patient is currently receiving adequate withdrawal medication. We will continue to monitor closely. 4. COPD. Continue management per pulmonary with antibiotics and breathing treatment and aggressive pulmonary toilet. 5. Anemia, likely secondary to recent lobectomy. We will continue to follow. 6. Nicotine dependence. We will continue with nicotine patch. 7. History of bipolar and depression. Continue with home medications. 8. DVT prophylaxis. Continue with SCDs and SOPHIA hose and GI prophylaxis. This patient is intubated and we will continue with Protonix. 9. Nutritional status. This patient is tolerating tube feeding, without any residual. CRITICAL CARE TIME: 30 minutes. cc: MD Bruno Gibson MD
[2016-11-23] MEDS: PROTONIX IV SCH (13:20)
--- NOTE | 2016-11-23 13:39 | Diag Imaging Result Document ---
PROCEDURE NAME: CHEST-PORTABLE - 11/23/2016 PORTABLE CHEST X-RAY AT 1300 HOURS: COMPARISON: 0500 hours. FINDINGS: Stable double left chest tubes. Stable endotracheal tube, nasogastric tube, and left PICC line. No significant pneumothorax. Stable volume loss on the left with slight infiltrate/atelectasis at the left base. Significant infiltrate throughout the right lung diffusely. Heart size remains normal. IMPRESSION: No significant change from prior.
[2016-11-24] MEDS: OFIRMEV 1000 MG/ISOTONIC SOLN 1,000 MG/100 ML BOTTLE IV SCH ×4 (00:20→17:35)
[2016-11-24] MEDS: ATIVAN IV PRN ×4 (00:27→22:26)
[2016-11-24] MEDS: MORPHINE IV PRN ×3 (00:27→22:30)
[2016-11-24] MEDS: DIPRIVAN 1% 1,000 MG/100 ML BOTTLE IV SCH ×3 (01:14→10:26)
[2016-11-24] MEDS: D5 1/2 NS + KCL 20 MEQ 1,000 ML IV SCH ×2 (02:32→17:31)
[2016-11-24] MEDS: ZOSYN 3.375 GM/NS 3.375 GM/50 ML IVPB IV SCH ×4 (02:32→19:41)
[2016-11-24] MEDS: DUONEB (A & A) INH SCH ×6 (03:19→22:56)
[2016-11-24 04:23] LABS: ALLEN TEST YES; BE 9.3 mmoll (-3.0-3.0); BLOOD TYPE ARTERIAL; DRAW SITE R RADIAL; METHB 2.2 % (0.0-1.5); O2(CT) 7.3 mL/dL (15.0-23.0); PCO2(98.6) 44 mmHg (35-45); PO2(98.6) 127 mmHg (60-100); SAMPLE BLOOD; SAO2 99.5 % (95.0-100.0); SRATE 16 BPM; THB 5.2 g/dL (11.5-17.4); TVOL 400 mL; pH(98.6) 7.49 (7.35-7.45)
[2016-11-24 04:27] LABS: MODALITY VENTILATOR
[2016-11-24 04:52] LABS: MANUAL DIFF NEEDED? NO
[2016-11-24 05:32] LABS: AGAP 10; BUN 5 mg/dL (8-22); CALCIUM 8.1 mg/dL (8.8-10.2); CHLORIDE 106 mmol/L (98-107); COSMO 285; POTASSIUM 2.9 mmol/L (3.5-5.1); SODIUM 144 mmol/L (136-145); TCO2 28 mmol/L (25-35)
[2016-11-24 06:02] LABS: BASO% 0.3 % (0.0-0.8); EOS# 0.77 X1000 (0.0-0.7); EOS% 5.7 % (0.0-10.0); HEMATOCRIT 31.2 % (37.0-47.0); HEMOGLOBIN 10.1 g/dL (12.0-16.0); IMM GRAN# 0.04 X1000 (0.0-0.04); IMM GRAN% 0.3 % (0.0-0.5); LYMPH# 1.85 X1000 (1.2-3.4); LYMPH% 13.6 % (20.5-51.1); MCH 31.1 PG (27-31); MCHC 32.4 g/dL (33-37); MONO# 0.72 X1000 (0.11-0.59); MONO% 5.3 % (1.7-9.3); MPV 9.2 FL (7.4-10.4); NEUT% 74.8 % (42.2-75.2); PLT 385 X1000 (130-400); RBC 3.25 XMIL (4.2-5.4)
[2016-11-24] MEDS ORDERED: MAGNESIUM SULFATE 2 GM/S.W.I. 2 GM/50 ML IVPB IV ONE (06:56)
[2016-11-24] MEDS: MUCOMYST 20% INH SCH ×2 (08:13→19:55)
[2016-11-24] MEDS: VANCOMYCIN 1.25 GM in NS 250 ML IV SCH (08:52)
[2016-11-24] MEDS: POTASSIUM CHLORIDE 20 MEQ/SWI 20 MEQ/100 ML IVPB IV SCH ×2 (08:52→11:55)
[2016-11-24] MEDS: NICODERM PATCH TD SCH (08:52)
[2016-11-24] MEDS: PROZAC PO SCH (08:57)
--- NOTE | 2016-11-24 09:18 | Diag Imaging Result Document ---
PROCEDURE NAME: CHEST-PORTABLE - 11/24/2016 PORTABLE CHEST X-RAY: COMPARISON: 11/23/2016. FINDINGS: Stable double left chest tubes. Stable endotracheal tube and nasogastric tube. Stable left PICC line. There is improvement in the hazy infiltrate throughout the right lung. Slight worsening hazy infiltrate at the left lung base with some probable effusion. No pneumothorax. IMPRESSION: Mixed change from prior, with overall some improvement.
--- NOTE | 2016-11-24 11:06 | PROGRESS NOTE ---
DATE: 11/24/2016 SUBJECTIVE: Stable overnight. Propofol has been held. Tube feed has been held. Plan is for possible extubation. She is following commands and is waking up well this morning. OBJECTIVE: No fevers. Some tachycardia overnight in the 110s, but it is 90 this morning. Blood pressure is 92/61, oxygen saturation 100% down to PEEP of 8 with 40% FiO2. General: She is moving all of her extremities this morning but still somewhat sedated. Minimal ventilator settings, starting on the weaning protocol. Her left chest dressing is clean, dry and intact. There is no air leak in her tube and serous drainage is noted, but this is tapering off on water seal. DIAGNOSTIC DATA: On review of her labs, white count is down to 13, hematocrit stable at 31. ABG shows 7.42, 44, 127 and 32. Potassium down to 2.9. Creatinine 0.4. Chest x-ray shows good expansion of the left lung with no consolidation and good position of her tubes. ASSESSMENT AND PLAN: 1. This is a 46-year-old female status post left lower lobectomy complicated by mucus plugging, requiring intubation and bronchoscopy. Chest x-ray is very clear. She is doing well, and there is no air leak in her tubes. We plan for extubation today per the Pulmonary Team and then over the next 24 hours, we will begin discontinuing her chest tubes. She has been on enteral support, and pending extubation, we will either resume tube feeds or start her on a diet. 2. Agitation, her underlying narcotics and psychiatric history have complicated her ventilator wean and her hospital course thus far, but overall I think she is doing very well from a surgical standpoint. cc: Bruno Kumar MD
[2016-11-24] MEDS: PROTONIX IV SCH (11:56)
[2016-11-24] MEDS: HALDOL IV PRN ×2 (12:35→19:38)
--- NOTE | 2016-11-24 13:13 | PROGRESS NOTE ---
DATE: 11/24/2016 SUBJECTIVE: This patient is still on mechanical ventilation and sedated. We did a wean trial today, but she got tachypneic with agitation. The urine output is adequate, and she is tolerating tube feedings. Pulmonary department is following this patient. OBJECTIVE: Vital signs: Temperature 97.3, pulse 90, respiratory rate 19, blood pressure 92/61, oxygen saturation 93 on mechanical ventilation. HEENT: Head normocephalic, no trauma, CARLOS ALBERTO. Neck: No JVD, no masses. Central trachea. Chest: Left side has a dressing that is clean. I do not see any abnormality. She is still with 2 chest tubes without any complication. Breath sounds at the level of the left lower part of the chest and rhonchi bilaterally, but mostly at the level of the right lower lung and left upper lung. Abdomen: Soft, nontender, nondistended, no hepatosplenomegaly. Extremities: No edema, no clubbing, no cyanosis. Neurological: The patient is sedated and intubated. LABORATORY: WBC 13.5, hemoglobin 10.1, hematocrit 31.2, platelets 385. Sodium 144, potassium 2.9, chloride 106, bicarbonate 28, BUN 5, creatinine 0.4, glucose 113, calcium 8.1. ASSESSMENT AND PLAN: 1. Left lower lung cancer status post left lower lobectomy. This patient has been reintubated secondary to mucous plugging in the left upper lobe, now status post bronchoscopy. Chest x-ray looks a little bit better compared with the previous days. Will continue with the same management for now. Pulmonary department is following this patient. 2. Acute hypoxemic respiratory failure, multifactorial. Continue with mechanical ventilation. 3. Hypokalemia. Will replace the potassium today. 4. Opiate withdrawal. This patient is currently receiving adequate withdrawal medication. Will continue to monitor closely. 5. Chronic obstructive pulmonary disease. Continue management per Pulmonary with antibiotics and breathing treatment and aggressive pulmonary toilet. 6. Anemia, likely secondary to recent lobectomy. Continue to monitor. The hemoglobin and hematocrit have been stable. 7. Nicotine dependence. Continue with nicotine patch. 8. History of bipolar disorder and depression. Continue home medications. 9. DVT prophylaxis. Continue with SCDs and SOPHIA hose and GI prophylaxis. 10.This patient is intubated, and will continue with Protonix. 11.Nutritional status. This patient is tolerating tube feedings without any residual. Continue with the same treatment for now. Critical care time 30 minutes. cc: MD Bruno Gibson MD
[2016-11-24 13:17] LABS: ALLEN TEST NO; BE 5.3 mmoll (-3.0-3.0); BLOOD TYPE ARTERIAL; DRAW SITE R BRACHIAL; METHB 1.6 % (0.0-1.5); O2(CT) 14.5 mL/dL (15.0-23.0); PCO2(98.6) 38 mmHg (35-45); PO2(98.6) 86 mmHg (60-100); SAMPLE BLOOD; SAO2 98.5 % (95.0-100.0); THB 10.7 g/dL (11.5-17.4); pH(98.6) 7.49 (7.35-7.45)
[2016-11-24 13:18] LABS: MODALITY VENTILATOR
[2016-11-24] MEDS ORDERED: GEODON IM ONE ×2 (14:01→21:02)
[2016-11-24] MEDS ORDERED: STERILE WATER INJ. INJ ONE ×2 (14:01→21:02)
[2016-11-24] MEDS ORDERED: STERILE WATER INJ. ONE (14:04)
[2016-11-24 14:54] LABS: ALLEN TEST NO; BE 8.7 mmoll (-3.0-3.0); BLOOD TYPE ARTERIAL; DRAW SITE R BRACHIAL; O2(CT) 11.9 mL/dL (15.0-23.0); PCO2(98.6) 20 mmHg (35-45); PO2(98.6) 144 mmHg (60-100); SAMPLE BLOOD; SAO2 99.6 % (95.0-100.0); THB 8.6 g/dL (11.5-17.4)
[2016-11-24 14:56] LABS: MODALITY BI PAP
[2016-11-24 14:58] LABS: pH(98.6) 7.75 (7.35-7.45)
--- NOTE | 2016-11-24 15:05 | Diag Imaging Result Document ---
PROCEDURE NAME: CHEST-PORTABLE - 11/24/2016 PORTABLE CHEST X-RAY 11/24/2016 AT 1410 HOURS: COMPARISON: 0500 hours. FINDINGS: The endotracheal tube and nasogastric tube have been removed. Stable double left chest tubes. Stable left PICC line. Lungs remain well expanded. No infiltrates or significant pneumothorax. IMPRESSION: Patient extubated. Otherwise, no change.
[2016-11-24 17:18] LABS: ALLEN TEST NO; BE 8.3 mmoll (-3.0-3.0); BLOOD TYPE ARTERIAL; DRAW SITE R BRACHIAL; O2(CT) 15.1 mL/dL (15.0-23.0); PCO2(98.6) 39 mmHg (35-45); PO2(98.6) 75 mmHg (60-100); SAMPLE BLOOD; SAO2 97.6 % (95.0-100.0); THB 11.4 g/dL (11.5-17.4); pH(98.6) 7.52 (7.35-7.45)
[2016-11-24 17:19] LABS: MODALITY BI PAP
[2016-11-24] MEDS: VANCOMYCIN 1.5 GM in NS 250 ML IV SCH (21:06)
[2016-11-25] MEDS: OFIRMEV 1000 MG/ISOTONIC SOLN 1,000 MG/100 ML BOTTLE IV SCH ×5 (00:19→23:51)
[2016-11-25] MEDS: ZOSYN 3.375 GM/NS 3.375 GM/50 ML IVPB IV SCH ×4 (02:30→19:50)
[2016-11-25] MEDS: DUONEB (A & A) INH SCH ×6 (03:15→23:06)
[2016-11-25 04:46] LABS: ALLEN TEST YES; BE 6.1 mmoll (-3.0-3.0); BLOOD TYPE ARTERIAL; DRAW SITE R RADIAL; METHB 1.8 % (0.0-1.5); PCO2(98.6) 43 mmHg (35-45); PO2(98.6) 97 mmHg (60-100); SAMPLE BLOOD; SAO2 98.5 % (95.0-100.0); THB 9.6 g/dL (11.5-17.4); pH(98.6) 7.46 (7.35-7.45)
[2016-11-25 04:47] LABS: MODALITY BI PAP
[2016-11-25] MEDS: ATIVAN IV PRN ×3 (05:07→18:48)
[2016-11-25] MEDS: MORPHINE IV PRN ×2 (05:07→10:40)
[2016-11-25 07:32] LABS: AGAP 13; ALBUMIN 2.1 g/dL (3.5-5.0); ALKALINE PHOSPHATASE 149 U/L (32-104); BUN 5 mg/dL (8-22); CALCIUM 7.7 mg/dL (8.8-10.2); CHLORIDE 106 mmol/L (98-107); COSMO 285; GOT 19 U/L (10-30); GPT 8 U/L (10-36); POTASSIUM 3.5 mmol/L (3.5-5.1); SODIUM 145 mmol/L (136-145); TCO2 26 mmol/L (25-35); TOTAL BILIRUBIN 0.57 mg/dL (0.20-1.00); TOTAL PROTEIN 5.6 g/dL (6.3-8.3)
[2016-11-25] MEDS: MUCOMYST 20% INH SCH ×2 (07:56→19:14)
[2016-11-25] MEDS: VANCOMYCIN 1.5 GM in NS 250 ML IV SCH ×2 (09:07→21:18)
[2016-11-25] MEDS: D5 1/2 NS + KCL 20 MEQ 1,000 ML IV SCH ×3 (09:09→09:59)
[2016-11-25] MEDS: PROZAC PO SCH (09:09)
[2016-11-25] MEDS: NICODERM PATCH TD SCH (09:09)
[2016-11-25] MEDS: HALDOL IV PRN ×3 (09:58→22:33)
[2016-11-25] MEDS: CLINIMIX E 4.25%-5% SOLUTION 1,000 ML IV SCH (09:59)
--- NOTE | 2016-11-25 11:11 | Diag Imaging Result Document ---
PROCEDURE NAME: CHEST-PORTABLE - 11/25/2016 PORTABLE CHEST: COMPARISON: 11/24/2016. FINDINGS: Stable double left chest tubes. Stable left PICC line. No pneumothorax. Stable hazy infiltrate throughout the right lung and in the left lung base. No new infiltrates. IMPRESSION: No change from prior.
[2016-11-25] MEDS ORDERED: BUPRENEX IV ONE (11:30)
[2016-11-25] MEDS: SODIUM CHLORIDE 0.9% INJ SCH (11:57)
[2016-11-25] MEDS: PROTONIX IV SCH (11:57)
[2016-11-25] MEDS: BUPRENEX IV PRN ×2 (15:33→19:48)
--- NOTE | 2016-11-25 15:54 | PROGRESS NOTE ---
DATE: 11/25/2016 SUBJECTIVE: This patient was extubated yesterday and she has been having some kind of agitation, she was placed on buprenorphine and it seems to help, no family members at the bedside. I will start this patient on Clinimix. She is not able to tolerate p.o. at this moment. OBJECTIVE: Vital Signs: Temperature 98.5 degrees, pulse 112, respiratory rate 25, blood pressure 168/140, oxygen saturation 96 on BiPAP. HEENT: Head normocephalic. No trauma. PERRLA. Neck: Supple. No JVD. No masses. Central trachea. Chest: Left side has a wound that looks clean, dry and intact. I do not see any abnormality. She is still having 2 chest tubes without any complications. Breath sounds at the level of the left part of the chest with rhonchi, also rhonchi at the level of the right upper lung and decreased breath sounds at the bases. Abdomen: Soft, nontender, nondistended. No hepatosplenomegaly. Extremities: No edema. No clubbing. No cyanosis. Neurological: The patient is sleepy. She is not following commands. She is not talking to me. She grimaces with pain stimulation. LABORATORY: Sodium 145, potassium 3.5, chloride 106, bicarbonate 26, BUN 5, creatinine 0.4, glucose 83, calcium 7.7, AST 19, ALT 8, albumin 2.1. ASSESSMENT AND PLAN: 1. Left lower lung cancer status post lower lobectomy. This patient was extubated, she is presenting with agitation and altered mental status, she is receiving buprenorphine and it seems to be working. Pulmonary department is following this patient. 2. Acute hypoxemic respiratory failure, multifactorial. Will continue with the BiPAP machine for now. 3. Hypokalemia resolved. 4. Opiate withdrawal. This patient has been placed on buprenorphine. Will continue with this medication for now. 5. Chronic obstructive pulmonary disease not in exacerbation at this moment. Continue management per pulmonary and antibiotics. 6. Anemia likely secondary to recent lobectomy. Continue to monitor. 7. Nicotine dependence. Continue with nicotine patch. 8. History of bipolar disorder and depression. Continue with home medication. 9. Deep vein thrombosis prophylaxis. Continue with SCDs and SOPHIA hose. 10. Gastrointestinal prophylaxis. Continue with PPIs. 11. Nutritional status. This patient was on mechanical ventilation and she was tolerating tube feedings but now she is extubated and she is not able to eat by herself. I put this patient on Clinimix and will monitor. CRITICAL CARE TIME: 30 minutes. cc: MD Bruno Gibson MD
--- NOTE | 2016-11-25 16:10 | PROGRESS NOTE ---
DATE: 11/25/2016 SUBJECTIVE: Persistent agitation with pain medicine and benzodiazepine requirement, although she remains extubated. Hemodynamically she has been stable. OBJECTIVE: Vital signs: No fevers. Heart rate ranged from the 90s to 130s, depending on her agitation level. Blood pressure 160/140. She is on 40% BiPAP with saturations in the high 90s. She is agitated, thrashing around in the bed. Not very coherent, but is protecting her airway. Cardiovascular: Sinus tachycardia. Left chest incision is clean, dry, intact with serous drainage in the tubes which is minimal. No air leak. They are to water-seal. LABORATORY: Reviewed her laboratory. No new labs today. ABG 7.46, 43, 97, 29, creatinine 0.4. ASSESSMENT AND PLAN: This is a 46-year-old female status post left lower lobectomy. She also has chronic pain with high opiate and benzodiazepine use and likely abuse, in addition to prescription. Pain control and sedation has been an issue, although from chest x-ray and post surgical standpoint, she is doing well. There is no air leak with good expansion of her lungs. She is on antibiotics for pneumonia given the mucous plugging in the early postoperative phase, but her bronchioalveolar lavage cultures have not really show anything. We will continue to optimize pain control, benzodiazepine replacement. I suspect that it is Xanax withdrawal that is contributing and we cannot really give her oral medicines given her mental status at this point. We will continue to optimize this as best we can, but the remaining issues of agitation, altered mental status related to a likely some degree of withdrawal despite IV supplementation. When her mental status is better, we will begin removing her tubes, starting with her anterior tube. I think both tubes are ready to come out, but right now given her mental status, this is not possible. Dr. Cruz is following. I appreciate his help. cc: Bruno Kumar MD
[2016-11-26] MEDS: BUPRENEX IV PRN ×7 (00:06→23:06)
[2016-11-26] MEDS: ZOSYN 3.375 GM/NS 3.375 GM/50 ML IVPB IV SCH ×4 (02:31→20:38)
[2016-11-26] MEDS: ATIVAN IV PRN ×2 (02:50→13:07)
[2016-11-26] MEDS: DUONEB (A & A) INH SCH ×6 (03:25→23:01)
[2016-11-26] MEDS: CLINIMIX E 4.25%-5% SOLUTION 1,000 ML IV SCH (04:21)
[2016-11-26] MEDS: D5 1/2 NS + KCL 20 MEQ 1,000 ML IV SCH (04:21)
[2016-11-26 04:39] LABS: ALLEN TEST YES; BE 4.8 mmoll (-3.0-3.0); BLOOD TYPE ARTERIAL; DRAW SITE R RADIAL; METHB 1.7 % (0.0-1.5); O2(CT) 14.5 mL/dL (15.0-23.0); PCO2(98.6) 49 mmHg (35-45); PO2(98.6) 296 mmHg (60-100); SAMPLE BLOOD; SAO2 99.7 % (95.0-100.0); THB 10.1 g/dL (11.5-17.4)
[2016-11-26 04:40] LABS: MODALITY BI PAP
--- NOTE | 2016-11-26 05:40 | EKG Report ---
Test Performed on : 11/24/2016 10:18:28 AM Test Reason : QT INTERVAL Blood Pressure : / mmHG Vent. Rate : 098 BPM Atrial Rate : 098 BPM P-R Int : 140 ms QRS Dur : 076 ms QT Int : 390 ms P-R-T Axes : 062 058 052 degrees QTc Int : 497 ms Normal sinus rhythm. Nonspecific T wave abnormality Prolonged QT Abnormal ECG When compared with ECG of 19-NOV-2016 13:05, Nonspecific T wave abnormality now evident in Lateral leads Confirmed by Lb STALLWORTH, Colten Huntley ([id number]) on 11/26/2016 7:49:42 PM
[2016-11-26] MEDS: HALDOL IV PRN (05:57)
[2016-11-26] MEDS: OFIRMEV 1000 MG/ISOTONIC SOLN 1,000 MG/100 ML BOTTLE IV SCH ×4 (05:58→23:14)
[2016-11-26 06:13] LABS: MANUAL DIFF NEEDED? NO
[2016-11-26 06:22] LABS: BASO% 0.3 % (0.0-0.8); EOS# 0.84 X1000 (0.0-0.7); EOS% 7.2 % (0.0-10.0); HEMATOCRIT 31.2 % (37.0-47.0); IMM GRAN# 0.03 X1000 (0.0-0.04); IMM GRAN% 0.3 % (0.0-0.5); LYMPH# 1.45 X1000 (1.2-3.4); LYMPH% 12.4 % (20.5-51.1); MCHC 32.1 g/dL (33-37); MCV 96.6 FL (81-99); MONO# 1.04 X1000 (0.11-0.59); MONO% 8.9 % (1.7-9.3); MPV 8.8 FL (7.4-10.4); NEUT% 70.9 % (42.2-75.2); PLT 446 X1000 (130-400); RBC 3.23 XMIL (4.2-5.4)
[2016-11-26 06:32] LABS: AGAP 13; BUN 7 mg/dL (8-22); CHLORIDE 104 mmol/L (98-107); COSMO 284; POTASSIUM 3.3 mmol/L (3.5-5.1); SODIUM 143 mmol/L (136-145); TCO2 26 mmol/L (25-35)
--- NOTE | 2016-11-26 07:36 | Diag Imaging Result Document ---
PROCEDURE NAME: CHEST-PORTABLE - 11/26/2016 AP PORTABLE CHEST, 11/26/2016 AT 0500 HOURS: FINDINGS: There are 2 chest tubes in the left hemithorax. There is a small residual pneumothorax particularly visible over the hemidiaphragm and mediastinal contours. There is alveolar opacity in the left base and throughout the right lung. This is particularly severe in the right upper lobe. Compared to 11/25/2016, there has been very little change. There has been some improvement particularly with respect to the right lower lobe since 11/23/2016. The pneumothorax on the left has been present since at least the previous study of 11/24/2016. IMPRESSION: Pulmonary edema and/or pneumonia. Residual left pneumothorax despite the presence of 2 chest tubes.
[2016-11-26] MEDS: MUCOMYST 20% INH SCH ×2 (08:19→19:09)
[2016-11-26] MEDS ORDERED: POTASSIUM CHLORIDE 40 MEQ/SWI 40 MEQ/100 ML IVPB IV ONE (08:22)
[2016-11-26] MEDS: NICODERM PATCH TD SCH (08:55)
[2016-11-26] MEDS: VANCOMYCIN 1.5 GM in NS 250 ML IV SCH ×2 (08:55→22:28)
[2016-11-26] MEDS: PROZAC PO SCH (10:26)
[2016-11-26] MEDS: XANAX PO PRN ×2 (10:26→17:03)
[2016-11-26] MEDS: PROTONIX IV SCH (13:12)
--- NOTE | 2016-11-26 13:17 | PROGRESS NOTE ---
DATE: 11/26/2016 SUBJECTIVE: This patient was extubated 2 days ago and she has been having agitation. She has been placed on buprenorphine and it seems to help. No family members at the bedside. This patient was started on Clinimix. Today we are going to try to place an NG tube down and probably we will start this patient on her home medications. If she is not completely alert or following commands we probably need to start this patient on tube feedings. OBJECTIVE: Vital Signs: Temperature 99 degrees, pulse 120, respiratory rate 28, blood pressure 155/97, oxygen saturation 98 on 5 L of nasal cannula. HEENT: Head normocephalic. No trauma. PERRLA. Neck: Supple. No JVD. No masses. Central trachea. Chest: Left side has a wound that looks clean, dry, and intact. I do not see any abnormality. She still has 2 chest tubes without any complication. Breath sounds at the level of the left part of the chest with rhonchi. Also rhonchi at the level of the right upper lung and decreased breath sounds at the bases. Abdomen: Soft, nontender, nondistended. No hepatosplenomegaly. Extremities: No edema. No clubbing. No cyanosis. Neurological: The patient is sleepy. She is following commands on and off. She is not talking at this moment. She grimaces with pain stimulation. She is a little bit agitated. LABORATORY: WBC 11.6, hemoglobin 10, hematocrit 31.2, platelets 446,000. Sodium 143, potassium 3.3, chloride 104, bicarbonate 26, BUN 7, creatinine 0.4, glucose 114, calcium 8. ASSESSMENT AND PLAN: 1. Left lower lung cancer status post lower lobectomy. This patient was extubated a couple days ago. She has presented with agitation and altered mental status. She is receiving buprenorphine and it seems to be working. Pulmonary department is following this patient. Today probably we need to place an NG tube down to see if we can restart her home medications. If this patient is still having altered mental status we probably need to start this patient on tube feedings. 2. Hypoxemic respiratory failure, multifactorial. Continue with the same management for now. This patient is on a BiPAP machine. 3. Hypokalemia. I will replace the potassium today. 4. Opiate withdrawal. This patient has been on buprenorphine. We will probably use an NG tube to continue her home medications. 5. Chronic obstructive pulmonary disease. Not in exacerbation at this moment. Continue with the same management. 6. Anemia. Likely secondary to recent lobectomy. Continue to monitor. 7. Nicotine dependence. Continue with nicotine patch. 8. History of bipolar disorder and depression. Continue with home medication. 9. Deep vein thrombosis prophylaxis. Continue with SCDs and SOPHIA hose. 10. Gastrointestinal prophylaxis. Continue with PPIs. 11. Nutritional status. This patient is on Clinimix. At this moment, if after putting in the NG she is not alert enough to eat by herself we will start this patient on tube feedings. CRITICAL CARE TIME: 35 minutes. cc: MD Bruno Gibson MD
--- NOTE | 2016-11-26 15:36 | PROGRESS NOTE ---
DATE: 11/26/2016 SUBJECTIVE: Intermittent agitation overnight. Hemodynamically stable. Adequate gas exchange. OBJECTIVE: Vital Signs: Tachycardic when she is agitated although her heart rate is normal when she is not. No fevers. Temperature 98.9 degrees, pulse 100, blood pressure 137/66, oxygen saturation 100% on 60% FiO2. General: She is agitated. She does follow commands but thrashes around in bed. Cardiovascular: Normal rate, regular rhythm. Pulmonary: Chest tube with minimal serous drainage. No air leak. Water seal. LABS: Reviewed. White count is 11, hematocrit 31, ABG 7.4/49/296, bicarb of 28.7, creatinine 0.4. Chest x-ray shows good expansion of both lungs. No effusion. Some interstitial opacity but no focal consolidation. No pneumothorax. ASSESSMENT AND PLAN: This is a 46-year-old female status post left lower lobectomy. Hospital course has been complicated by likely drug withdrawals and persistent agitation. She is extubating. Her gas exchange and chest x-ray look okay but we are working towards obtaining a pain and agitation regimen that works for her. Overall gradually improving. Wound looks okay. When her agitation settles now, we will begin the process of taking her tubes out which are ready to be removed. cc: Bruno Kumar MD
[2016-11-26] MEDS ORDERED: OXY IR PO ONE (18:49)
[2016-11-27] MEDS: CLINIMIX E 4.25%-5% SOLUTION 1,000 ML IV SCH ×3 (00:10→22:27)
[2016-11-27] MEDS: ATIVAN IV PRN ×3 (01:08→22:26)
[2016-11-27] MEDS: ZOSYN 3.375 GM/NS 3.375 GM/50 ML IVPB IV SCH ×4 (03:06→19:50)
[2016-11-27] MEDS: D5 1/2 NS + KCL 20 MEQ 1,000 ML IV SCH (03:08)
[2016-11-27] MEDS: DUONEB (A & A) INH SCH ×6 (03:28→22:53)
[2016-11-27 04:44] LABS: ALLEN TEST YES; BE 2.9 mmoll (-3.0-3.0); BLOOD TYPE ARTERIAL; DRAW SITE R RADIAL; METHB 1.9 % (0.0-1.5); O2(CT) 13.8 mL/dL (15.0-23.0); PCO2(98.6) 39 mmHg (35-45); PO2(98.6) 51 mmHg (60-100); SAMPLE BLOOD; SAO2 90.8 % (95.0-100.0); THB 11.3 g/dL (11.5-17.4); pH(98.6) 7.45 (7.35-7.45)
[2016-11-27 04:45] LABS: MODALITY CANNULA
[2016-11-27] MEDS: HALDOL IV PRN (05:18)
[2016-11-27] MEDS: OFIRMEV 1000 MG/ISOTONIC SOLN 1,000 MG/100 ML BOTTLE IV SCH ×3 (05:21→17:32)
[2016-11-27 05:59] LABS: MANUAL DIFF NEEDED? NO
[2016-11-27 06:32] LABS: BASO% 0.3 % (0.0-0.8); EOS# 0.77 X1000 (0.0-0.7); EOS% 4.9 % (0.0-10.0); HEMATOCRIT 34.2 % (37.0-47.0); HEMOGLOBIN 10.9 g/dL (12.0-16.0); IMM GRAN# 0.07 X1000 (0.0-0.04); IMM GRAN% 0.4 % (0.0-0.5); LYMPH# 1.61 X1000 (1.2-3.4); LYMPH% 10.3 % (20.5-51.1); MCH 30.3 PG (27-31); MCHC 31.9 g/dL (33-37); MONO# 0.94 X1000 (0.11-0.59); MPV 8.9 FL (7.4-10.4); NEUT% 78.1 % (42.2-75.2); PLT 502 X1000 (130-400)
[2016-11-27 06:43] LABS: AGAP 12; BUN 5 mg/dL (8-22); CALCIUM 8.6 mg/dL (8.8-10.2); CHLORIDE 103 mmol/L (98-107); COSMO 277; POTASSIUM 3.5 mmol/L (3.5-5.1); SODIUM 140 mmol/L (136-145); TCO2 25 mmol/L (25-35)
--- NOTE | 2016-11-27 07:48 | Diag Imaging Result Document ---
PROCEDURE NAME: CHEST-PORTABLE - 11/27/2016 PORTABLE CHEST X-RAY, 11/27/2016: COMPARISON: 11/26/2016. FINDINGS: Stable double left chest tubes. Stable left PICC line. No pneumothorax. There is continued improvement in the ill-defined infiltrate throughout the right lung. Stable minimal infiltrate at the left lung base. IMPRESSION: Mild improvement from prior.
[2016-11-27] MEDS: MUCOMYST 20% INH SCH ×2 (07:54→19:20)
[2016-11-27] MEDS: NICODERM PATCH TD SCH (08:03)
[2016-11-27] MEDS: BUPRENEX IV PRN ×4 (08:04→20:34)
[2016-11-27] MEDS: PROZAC PO SCH (08:04)
[2016-11-27] MEDS: VANCOMYCIN 1.6 GM in NS 250 ML IV SCH ×2 (09:56→20:39)
[2016-11-27] MEDS: PROTONIX IV SCH (12:30)
[2016-11-27] MEDS: SODIUM CHLORIDE 0.9% INJ SCH (12:30)
--- NOTE | 2016-11-27 13:02 | PROGRESS NOTE ---
DATE: 11/27/2016 SUBJECTIVE: This patient was extubated 3 days ago and she has been having on and off agitation. She looks much better today and she was able to tell me her name and she was oriented in place and time. No family members at the bedside. This patient is still on Clinimix but when I talked to her she wanted to try food by mouth, so I ordered a formal swallow evaluation for this patient. OBJECTIVE: Vital Signs: Temperature 98.1 degrees, pulse 102, respiratory rate 17, blood pressure 159/103. Oxygen saturation 94% on 4 L of nasal cannula. HEENT: Head normocephalic. No trauma. PERRLA. Neck: Supple. No JVD. No masses. Central trachea. Chest: Left side has a wound that looks clean dry and intact. I do not see any abnormality today. She still has to 2 chest tubes without any complication. Breath sounds at the level of the left part of the chest with rhonchi. Also rhonchi at the level of the right upper lung and decreased breath sounds bilaterally at the bases. Abdomen: Soft, nontender, nondistended. No hepatosplenomegaly. Extremities: No edema. No clubbing. No cyanosis. Neurological: The patient is alert, she is more cooperative. She is oriented x3, but the nurse told me that she has been telling her all of this information. We will try to get a swallow evaluation for this patient. LABORATORY: WBC 15.6, hemoglobin 10.9, hematocrit 34.2. Sodium 140, potassium 3.5, chloride 103, bicarbonate 25, BUN 5, creatinine 0.3. Glucose 96, calcium 8.6. ASSESSMENT AND PLAN: 1. Left lower lung cancer status post lower lobectomy. This patient was extubated 3 days ago. She has been having agitation but right now, she looks much better. We started giving her, her home medication. I will ask for a formal swallowing a swallow evaluation. 2. Hypoxemic respiratory failure. Multifactorial. Continue with the same management for now. This patient is on nasal cannula. 3. Hypokalemia. Resolved. 4. Opiate withdrawal. This patient has been on buprenorphine, and we restarted her home medication. She does not look agitated at this moment. 5. COPD, not in exacerbation at this moment. Continue with the same management. 6. Anemia likely secondary to recent lobectomy. Continue to monitor. 7. Nicotine dependence. Continue with nicotine patch. 8. History of bipolar disorder and depression. Continue with home medication. 9. DVT prophylaxis. This patient is on SCDs and SOPHIA hose. 10. GI prophylaxis. Continue with PPIs. 11. Nutritional status. This patient is on Clinimix at this moment. We already asked for a swallow evaluation. We will follow their recommendations. CRITICAL CARE TIME: 35 minutes. cc: MD Bruno Gibson MD
[2016-11-27] MEDS ORDERED: BUMEX IV ONE (14:30)
[2016-11-27] MEDS: XANAX PO PRN (17:31)
--- NOTE | 2016-11-27 20:02 | PROGRESS NOTE ---
DATE: 11/27/2016 SUBJECTIVE: Improved agitation with initiation of her OxyContin and her Xanax. Still cries out at times but overall she is oriented and follows commands. OBJECTIVE: Heart rates improved down to the high 90s to low 100s. No fevers. Blood pressure 142/91, O2 saturation 95% on 4 L nasal cannula. Left chest incision is clean, dry, intact. There is no air leak, serous fluid out of her chest tubes, they have been to water seal. DIAGNOSTIC DATA: I have reviewed her labs. White count is mildly elevated at 15, but hematocrit is up slightly too. ABG looks okay. Creatinine is normal. Glucoses are 96. ASSESSMENT/PLAN: A 46-year-old female with status post left lower lobectomy. She is doing okay. Mental status is improving daily. Chest x-ray looks good. We will plan to remove her tubes today if her mental status allows. She is on antibiotics, I think we could probably stop these the next couple days, but she had been treated almost adequately for pneumonia. She is getting parental support and we will begin the process of starting enteral nutrition today by mouth. She is receiving aggressive pulmonary toileting. We will work on getting her out of bed some today. cc: Bruno Kumar MD
[2016-11-28] MEDS: D5 1/2 NS + KCL 20 MEQ 1,000 ML IV SCH (00:39)
[2016-11-28] MEDS: OFIRMEV 1000 MG/ISOTONIC SOLN 1,000 MG/100 ML BOTTLE IV SCH ×4 (00:39→17:25)
[2016-11-28] MEDS: ZOSYN 3.375 GM/NS 3.375 GM/50 ML IVPB IV SCH ×4 (01:42→19:43)
[2016-11-28] MEDS: BUPRENEX IV PRN ×5 (01:42→21:15)
[2016-11-28] MEDS: HALDOL IV PRN (03:43)
[2016-11-28] MEDS: DUONEB (A & A) INH SCH ×6 (03:58→22:38)
[2016-11-28 04:23] LABS: ALLEN TEST YES; BE 7.1 mmoll (-3.0-3.0); BLOOD TYPE ARTERIAL; DRAW SITE R RADIAL; METHB 1.8 % (0.0-1.5); O2(CT) 14.1 mL/dL (15.0-23.0); PCO2(98.6) 42 mmHg (35-45); PO2(98.6) 72 mmHg (60-100); SAMPLE BLOOD; SAO2 96.6 % (95.0-100.0); THB 10.7 g/dL (11.5-17.4); pH(98.6) 7.48 (7.35-7.45)
[2016-11-28 04:24] LABS: MODALITY CANNULA
[2016-11-28] MEDS: ATIVAN IV PRN ×4 (05:36→23:20)
[2016-11-28 05:51] LABS: BASO% 0.6 % (0.0-0.8); EOS% 10.3 % (0.0-10.0); HEMOGLOBIN 10.8 g/dL (12.0-16.0); IMM GRAN% 0.7 % (0.0-0.5); LYMPH% 13.2 % (20.5-51.1); MANUAL DIFF NEEDED? YES; MCH 30.9 PG (27-31); MCHC 32.7 g/dL (33-37); MCV 94.6 FL (81-99); MONO# 1.03 X1000 (0.11-0.59); MONO% 7.6 % (1.7-9.3); MPV 8.7 FL (7.4-10.4); NEUT% 67.6 % (42.2-75.2); PLT 601 X1000 (130-400); RBC 3.49 XMIL (4.2-5.4)
[2016-11-28 06:13] LABS: AGAP 13; ALBUMIN 2.2 g/dL (3.5-5.0); ALKALINE PHOSPHATASE 203 U/L (32-104); BUN 7 mg/dL (8-22); CALCIUM 8.5 mg/dL (8.8-10.2); CHLORIDE 101 mmol/L (98-107); COSMO 278; GOT 12 U/L (10-30); GPT 6 U/L (10-36); MAGNESIUM 1.5 mg/dL (1.5-2.7); POTASSIUM 3.3 mmol/L (3.5-5.1); SODIUM 140 mmol/L (136-145); TCO2 26 mmol/L (25-35); TOTAL BILIRUBIN 0.25 mg/dL (0.20-1.00); TOTAL PROTEIN 6.4 g/dL (6.3-8.3)
--- NOTE | 2016-11-28 06:23 | Diag Imaging Result Document ---
PROCEDURE NAME: CHEST-PORTABLE - 11/28/2016 PORTABLE CHEST: COMPARISON: Compared to 11/27/2016. FINDINGS: There are two left-sided chest tubes and there are left-sided skin basil. No pneumothorax. No change in the left-sided PICC line. There are dense infiltrates throughout the right lung and in the left base. These are fairly similar to the prior exam. The heart is not enlarged. No pleural effusions identified. IMPRESSION: Stable chest.
[2016-11-28 06:58] LABS: EOS 4 % (1-10); HYPOCHROM OCCASIONAL; LYMPHS 20 % (21-51); MONO 6 % (1-9)
[2016-11-28] MEDS: MUCOMYST 20% INH SCH ×2 (08:00→22:38)
[2016-11-28] MEDS ORDERED: KLOR-CON PO ONE (08:14)
[2016-11-28] MEDS: PROZAC PO SCH (08:19)
[2016-11-28] MEDS: NICODERM PATCH TD SCH (08:19)
[2016-11-28] MEDS: VANCOMYCIN 1.6 GM in NS 250 ML IV SCH ×2 (08:19→21:15)
[2016-11-28] MEDS: MIRALAX PO SCH (08:29)
[2016-11-28] MEDS: SODIUM CHLORIDE 0.9% INJ SCH (11:38)
[2016-11-28] MEDS: PROTONIX IV SCH (11:38)
--- NOTE | 2016-11-28 13:01 | PROGRESS NOTE ---
DATE: 11/28/2016 SUBJECTIVE: She is eating, more alert but still having quite a bit of pain she reports although she does appear to rest comfortably at times and is getting a lot of pain medicine. OBJECTIVE: No fevers. 97.4 this morning. Pulse is anywhere from the 80s to 120s depending on her anxiety level. Blood pressure 144/105. Oxygen saturation is 90 on 2 L nasal cannula. Left chest tubes have no air leak. They titer well, some serous fluid in there but minimal amounts really since surgery. Incision is clean, dry, and intact. She is otherwise alert and follows commands but quite anxious. LABS: White count down to 13, hematocrit 33. ABG was good at 7.48, 42, 72 with a bicarb of 30. Creatinine 0.4. ASSESSMENT/PLAN: 46-year-old female status post left lower lobectomy. Course has been complicated by significant pain medicine, anxiolytic requirement and antipsychotic requirements. It is likely that she is having some degree of withdrawal from some things she takes at home although she is on her home medicines currently. We will plan to remove her anterior tube today and possibly the posterior tube tomorrow. This has mainly been limited by her ability to participate with chest tube removal due to her mental status but I think she is at a point now that we can do this. We will check a chest x-ray following. Appreciate Dr. Beal's help with her. She is a difficult patient but is doing overall well from a surgical standpoint. cc: Bruon Kumar MD
--- NOTE | 2016-11-28 14:34 | PROGRESS NOTE ---
DATE: 11/28/2016 SUBJECTIVE: This patient was extubated 4 days ago and she looks much better today. She is more alert and more oriented and she is not having any kind of agitation at this moment. She is tolerating p.o. OBJECTIVE: Vital Signs: Temperature 97.8 degrees, pulse 110, respiratory rate 26. Blood pressure 130/93. O2 saturation of 91% on 2 L of nasal cannula. HEENT: Head normocephalic. No trauma. PERRLA. Neck: Supple. No JVD. No masses. Central trachea. Chest: The left side has a wound that looks clean and dry and intact. I do not see any abnormality. She still has 2 chest tubes without any complication. Coarse breath sounds with scattered rhonchi bilaterally. Decreased breath sounds at the left lower lung base. Abdomen: Soft, nontender, nondistended. No hepatosplenomegaly. Extremities: No edema. No clubbing. No cyanosis. Neurological: The patient is alert, she is more cooperative. She is oriented x3. She had a swallow evaluation and she passed. LABORATORY: WBC 13.6, hemoglobin 10.8, hematocrit 33, platelets 601,000, sodium 140, potassium 3.3, chloride 101, bicarbonate 26, BUN 7, creatinine 0.4, glucose 116, calcium 8.5. ASSESSMENT AND PLAN: 1. Left lower lung cancer status post lower lobectomy, this patient was extubated 4 days ago. She has been having agitation but today she looks much better, she was not agitated when I examined her. Probably today they will removed 1 of the 2 tubes, we will continue monitoring this patient in the ICU. 2. Hypoxemic respiratory failure, multifactorial. Continue with the same management. This patient is on nasal cannula. 3. Hypokalemia. I will replace the potassium today. 4. Opiate withdrawal. She looks much better. We restarted her home medication and she does not look agitated today. 5. COPD, not in exacerbation at this moment. Continue with the same management. 6. Anemia, likely secondary to recent lobectomy. Continue to monitor. 7. Nicotine dependence. Continue with nicotine patch and daily cessation education. 8. History of bipolar disorder and depression. Continue with home medication. 9. DVT prophylaxis. This patient is on SCDs and SOPHIA hose. 10. GI prophylaxis. Continue with PPIs. 11. Nutritional status. This patient is on Clinimix and also she was started on a diet, probably tomorrow if she is eating better we are going to be able to stop the Clinimix. CRITICAL CARE TIME: 35 minutes. cc: MD Bruno Gibson MD
--- NOTE | 2016-11-28 15:40 | Diag Imaging Result Document ---
PROCEDURE NAME: CHEST-PORTABLE - 11/28/2016 PORTABLE CHEST X-RAY AT 1500 HOURS: COMPARISON: 0500 hours. FINDINGS: One of the left-sided chest tube has been removed. No pneumothorax. Stable left PICC line. Stable bilateral infiltrates that are primarily interstitial. No new infiltrates. IMPRESSION: Removal of one of the left chest tubes, but no significant pneumothorax.
[2016-11-28] MEDS: CLINIMIX E 4.25%-5% SOLUTION 1,000 ML IV SCH (15:48)
[2016-11-29] MEDS: BUPRENEX IV PRN ×6 (01:12→22:29)
[2016-11-29] MEDS: HALDOL IV PRN (01:12)
[2016-11-29] MEDS: OFIRMEV 1000 MG/ISOTONIC SOLN 1,000 MG/100 ML BOTTLE IV SCH ×2 (01:12→05:21)
[2016-11-29] MEDS: D5 1/2 NS + KCL 20 MEQ 1,000 ML IV SCH (01:18)
[2016-11-29] MEDS: ZOSYN 3.375 GM/NS 3.375 GM/50 ML IVPB IV SCH ×4 (01:34→20:09)
[2016-11-29] MEDS: DUONEB (A & A) INH SCH ×6 (04:03→23:14)
[2016-11-29 05:19] LABS: ALLEN TEST YES; BE 3.3 mmoll (-3.0-3.0); BLOOD TYPE ARTERIAL; DRAW SITE R RADIAL; METHB 1.6 % (0.0-1.5); PCO2(98.6) 44 mmHg (35-45); PO2(98.6) 60 mmHg (60-100); SAMPLE BLOOD; SAO2 93.2 % (95.0-100.0); THB 15.9 g/dL (11.5-17.4); pH(98.6) 7.42 (7.35-7.45)
[2016-11-29 05:20] LABS: MODALITY CANNULA
[2016-11-29 06:02] LABS: MANUAL DIFF NEEDED? NO
[2016-11-29 06:09] LABS: BASO% 0.4 % (0.0-0.8); EOS# 1.82 X1000 (0.0-0.7); EOS% 12.3 % (0.0-10.0); HEMATOCRIT 31.1 % (37.0-47.0); HEMOGLOBIN 10.1 g/dL (12.0-16.0); IMM GRAN# 0.09 X1000 (0.0-0.04); IMM GRAN% 0.6 % (0.0-0.5); LYMPH# 1.92 X1000 (1.2-3.4); MCH 30.8 PG (27-31); MCHC 32.5 g/dL (33-37); MCV 94.8 FL (81-99); MONO# 1.07 X1000 (0.11-0.59); MONO% 7.2 % (1.7-9.3); MPV 8.7 FL (7.4-10.4); NEUT% 66.5 % (42.2-75.2); PLT 632 X1000 (130-400); RBC 3.28 XMIL (4.2-5.4)
[2016-11-29 06:29] LABS: AGAP 15; BUN 6 mg/dL (8-22); CALCIUM 8.4 mg/dL (8.8-10.2); CHLORIDE 102 mmol/L (98-107); COSMO 282; POTASSIUM 3.8 mmol/L (3.5-5.1); SODIUM 143 mmol/L (136-145); TCO2 26 mmol/L (25-35)
--- NOTE | 2016-11-29 07:24 | Diag Imaging Result Document ---
PROCEDURE NAME: CHEST-PORTABLE - 11/29/2016 PORTABLE CHEST X-RAY: COMPARISON: 11/28/2016. FINDINGS: Stable left chest tube and left PICC line. No pneumothorax. There is continued slight improvement in the bilateral infiltrates. Heart size remains normal. IMPRESSION: Continued slight improvement from prior.
[2016-11-29] MEDS: MUCOMYST 20% INH SCH ×2 (07:42→19:24)
[2016-11-29] MEDS: XANAX PO PRN ×3 (08:08→20:10)
[2016-11-29] MEDS: PROZAC PO SCH (08:08)
[2016-11-29] MEDS: NICODERM PATCH TD SCH (08:09)
[2016-11-29] MEDS: MIRALAX PO SCH (08:19)
--- NOTE | 2016-11-29 09:05 | PROGRESS NOTE ---
DATE: 11/29/2016 SUBJECTIVE: Pain is better. She is much more alert and oriented now. Oxygen is weaning. OBJECTIVE: Vital signs: No fevers. Heart rate is in the high 90s, blood pressure 147/94, oxygen saturation 92% on 3 L. General: She is alert and oriented. She is following commands. She is very clear. Cardiovascular: Normal rate, regular rhythm. Pulmonary: No increased work of breathing. The remaining chest tube is putting out serous fluid. No air leak. Incision is well healed. There is no lower extremity edema. LABORATORY DATA: I reviewed the labs. Persistent white count is 14, hematocrit is 31, platelets are 632. Gas exchange is good at 7.42, 44, 60, and 27 on her ABG. Creatinine 0.4. ASSESSMENT AND PLAN: A 46-year-old female status post left lower lobectomy complicated by drug withdrawal and significant agitation. She is doing well. I have removed her remaining chest tube this morning. I placed an occlusive dressing. She tolerated this well. Her chest x-ray showed good expansion, with stable chronic changes, and no pneumothorax. Will discontinue intravenous fluids and intravenous medications, discontinue her Padilla, and transfer her to the [facility]. She is on antibiotics for presumed pneumonia. At some point in the near future will start to transition this over to oral medicines. Otherwise, physical therapy is her main issue, but she is progressing well. cc: Bruno Kumar MD
[2016-11-29] MEDS: VANCOMYCIN 1.6 GM in NS 250 ML IV SCH ×2 (09:22→23:04)
--- NOTE | 2016-11-29 10:42 | PROGRESS NOTE ---
DATE: 11/29/2016 SUBJECTIVE: This patient was extubated 5 days ago and she looks much better today. Both of her chest tubes were removed by surgery. She is alert and oriented x3 at this moment. She is having severe weakness and physical therapy has been consulted. She is not having any kind of agitation at this moment. She is tolerating p.o. as well. OBJECTIVE: Vital Signs: Temperature 97 degrees, pulse 96, respiratory rate 22, blood pressure 147/94 and oxygen saturation 92 on 3 L of nasal cannula. HEENT: Head normocephalic. No trauma. PERRLA. Neck: Supple. No JVD. No masses. Central trachea. Chest: Bilateral coarse breath sounds with scattered rhonchi bilaterally. No breath sounds at the level of the left base. Abdomen: Soft, nontender, nondistended. No hepatosplenomegaly. Extremities: No edema. No clubbing. No cyanosis. Neurological examination: The patient is alert. She is oriented x3. She has severe weakness and she is tolerating p.o. LABORATORY: WBC 14.8, hemoglobin 10.1, hematocrit 31.1, platelets 632. Sodium 143, potassium 3.8, chloride 102, bicarbonate 26, BUN 6, creatinine 0.4, glucose 95, calcium 8.4. ASSESSMENT AND PLAN: 1. Left lower lung cancer status post lower lobectomy. This patient was extubated 5 days ago. She has been having agitation, but today she looks much better. She is not agitated. She is tolerating oral, both of her chest tubes were removed. She has severe weakness. I will consult physical therapy, and I will transfer this patient to the [facility] unit. 2. Hypoxemic respiratory failure, multifactorial. She was extubated already. Continue with the same management. This patient is on nasal cannula oxygen. 3. Hypokalemia resolved. 4. Opiate withdrawal. She looks much better. We restarted her home medications and she does not look agitated today. She is more cooperative and oriented x3. 5. Chronic obstructive pulmonary disease not in exacerbation at this moment. Continue with the same management. 6. Anemia. We will monitor. 7. Nicotine dependence. Continue with nicotine patch and daily cessation education. 8. History of bipolar disorder and depression. Continue with home medication. 9. Deep vein thrombosis prophylaxis. This patient is on sequential compression devices and thromboembolic device hose. I have been ordered physical therapy. Probably in the near future this patient should be on anticoagulation. 10. Gastrointestinal prophylaxis. Continue with proton pump inhibitors. 11. Nutritional status: This patient is tolerating oral. We started this patient on a diet. She is tolerating about 25% to 50% of the diet. Her Clinimix was stopped. 12. Physical deconditioning. Physical therapy has been consulted. We will continue to monitor. CRITICAL CARE TIME: 35 minutes. cc: MD Bruno Gibson MD
[2016-11-29] MEDS: SODIUM CHLORIDE 0.9% INJ SCH (11:35)
[2016-11-29] MEDS: PROTONIX IV SCH (11:35)
--- NOTE | 2016-11-29 13:28 | Diag Imaging Result Document ---
PROCEDURE NAME: CHEST-PORTABLE - 11/29/2016 PORTABLE CHEST X-RAY AT 1305 HOURS: COMPARISON: 0500 hours. FINDINGS: The last left chest tube has been removed. No pneumothorax. Stable left PICC line in good position. Grossly stable diffuse bilateral interstitial infiltrates/edema. IMPRESSION: Removal of the left chest tube with no significant pneumothorax.
[2016-11-29] MEDS: ATIVAN IV PRN ×2 (16:46→22:27)
[2016-11-30] MEDS: BUPRENEX IV PRN ×5 (02:15→21:05)
[2016-11-30] MEDS: XANAX PO PRN ×4 (02:15→23:18)
[2016-11-30] MEDS: ZOSYN 3.375 GM/NS 3.375 GM/50 ML IVPB IV SCH ×4 (02:23→20:18)
[2016-11-30] MEDS: DUONEB (A & A) INH SCH ×6 (03:02→22:51)
[2016-11-30] MEDS: ATIVAN IV PRN ×3 (04:55→18:23)
[2016-11-30 05:00] LABS: ALLEN TEST YES; BE 5.1 mmoll (-3.0-3.0); BLOOD TYPE ARTERIAL; DRAW SITE R RADIAL; METHB 1.8 % (0.0-1.5); PCO2(98.6) 39 mmHg (35-45); PO2(98.6) 77 mmHg (60-100); SAMPLE BLOOD; SAO2 97.7 % (95.0-100.0); THB 10.5 g/dL (11.5-17.4); pH(98.6) 7.48 (7.35-7.45)
[2016-11-30 05:03] LABS: MODALITY CANNULA
[2016-11-30 05:25] LABS: MANUAL DIFF NEEDED? NO
[2016-11-30 05:55] LABS: AGAP 11; BUN 5 mg/dL (8-22); CALCIUM 8.5 mg/dL (8.8-10.2); CHLORIDE 104 mmol/L (98-107); COSMO 278; POTASSIUM 3.3 mmol/L (3.5-5.1); SODIUM 141 mmol/L (136-145); TCO2 26 mmol/L (25-35)
[2016-11-30 06:52] LABS: BASO% 0.7 % (0.0-0.8); EOS# 1.65 X1000 (0.0-0.7); EOS% 13.6 % (0.0-10.0); HEMATOCRIT 31.8 % (37.0-47.0); HEMOGLOBIN 10.3 g/dL (12.0-16.0); IMM GRAN# 0.11 X1000 (0.0-0.04); IMM GRAN% 0.9 % (0.0-0.5); LYMPH# 2.05 X1000 (1.2-3.4); LYMPH% 16.9 % (20.5-51.1); MCH 30.7 PG (27-31); MCHC 32.4 g/dL (33-37); MCV 94.6 FL (81-99); MONO% 10.7 % (1.7-9.3); MPV 8.7 FL (7.4-10.4); NEUT% 57.2 % (42.2-75.2); PLT 641 X1000 (130-400); RBC 3.36 XMIL (4.2-5.4)
[2016-11-30] MEDS: MUCOMYST 20% INH SCH ×2 (07:55→19:54)
--- NOTE | 2016-11-30 07:55 | Diag Imaging Result Document ---
PROCEDURE NAME: CHEST-1 VIEW - 11/30/2016 ERECT AP PORTABLE CHEST AT 0545 HOURS: FINDINGS: There is a PICC line on the left with its tip in the right atrium. There is patchy alveolar opacity bilaterally. This was also present on 11/29/2016. There is what appears to be some loculated effusion laterally on the left. There is no residual or recurrent pneumothorax. IMPRESSION: Pulmonary edema and/or pneumonia with left pleural effusion.
[2016-11-30] MEDS: PROZAC PO SCH (08:19)
[2016-11-30] MEDS: NICODERM PATCH TD SCH (08:19)
[2016-11-30] MEDS: MIRALAX PO SCH (08:20)
[2016-11-30] MEDS: VANCOMYCIN 1.6 GM in NS 250 ML IV SCH ×2 (08:27→21:04)
[2016-11-30] MEDS ORDERED: KLOR-CON PO ONE (10:00)
[2016-11-30] MEDS: PROTONIX IV SCH (12:20)
[2016-11-30] MEDS: SODIUM CHLORIDE 0.9% INJ SCH (12:20)
--- NOTE | 2016-11-30 15:13 | PROGRESS NOTE ---
DATE: 11/30/2016 SUBJECTIVE: The patient notes that she is feeling better today. She is still weak and tired. OBJECTIVE: HEENT: Normocephalic, atraumatic. Neck: Supple. Vitals: Temperature 98 degrees, pulse 104, respiratory 14, BP 129/87, saturations 96% on 3 L. General: Patient is awake, alert. CV: Regular rate. Chest: Bilateral coarse breath sounds. Abdomen: Soft. Extremities: Moves all extremities. Neuro: No changes. LABS: WBC is 12, hemoglobin and hematocrit 10 and 31. ABG is improved with a pH of 7.4, pCO2 39, PO2 at 77. Potassium 3.3. ASSESSMENT: 1. Hypokalemia. Will replace. 2. Leukocytosis improving. 3. Hypoxic respiratory failure improving. 4. Left lower lobe lung cancer status post lobectomy. 5. Opiate withdrawal improving. PLAN: Will continue physical therapy. Continue current medications. She thankfully has been extubated and is tolerating very well. We will recheck labs in the a.m. Further orders as needed. cc: MD Bruno Nesbitt MD
--- NOTE | 2016-11-30 22:02 | PROGRESS NOTE ---
DATE: 11/30/2016 SUBJECTIVE: She moved to yesterday. She is doing well. She is more alert. The tubes are out. Her pain is improved. Although she continues to complain of pain, she seems less anxious about it. She is tolerating a diet. Her mobility is improving. OBJECTIVE: Vital Signs: Temperature is 98 degrees, pulse 93, blood pressure 128/76. Oxygen saturation is 96% on 3 L. General: She is alert and oriented. Her incision is clean, dry, and intact. Chest tubes are out. Abdomen: Soft, nontender. Integument: Warm, dry. LABORATORY DATA: I have reviewed her labs. White count is down to 12, hematocrit stable at 31. ABG looks good. Creatinine 0.4. ASSESSMENT AND PLAN: A 46-year-old female status post left lower lobectomy. Chest tubes are out. Really more of a deconditioning at this point, and pain control but suspect she is nearing ready for discharge soon. We will see how she progresses with physical therapy and follow their recommendations and decide if she is ready for home or if she is going to need to go to a rehab facility. I discussed the pathology with her several times. Lymph nodes were negative, completely resected. She will need follow up with Dr. Rucker in the future. Dr. Whelan is around this weekend and rounding my patients but I will be available via phone if needed. cc: Bruno Kumar MD
[2016-12-01] MEDS: BUPRENEX IV PRN ×5 (02:07→20:58)
[2016-12-01] MEDS: DUONEB (A & A) INH SCH ×6 (02:52→23:12)
[2016-12-01] MEDS: ATIVAN IV PRN ×2 (03:09→09:20)
[2016-12-01] MEDS: ZOSYN 3.375 GM/NS 3.375 GM/50 ML IVPB IV SCH ×4 (03:09→20:59)
[2016-12-01 05:22] LABS: HEMATOCRIT 31.4 % (37.0-47.0); HEMOGLOBIN 9.9 g/dL (12.0-16.0); MCH 30.1 PG (27-31); MCHC 31.5 g/dL (33-37); MCV 95.4 FL (81-99); MPV 8.5 FL (7.4-10.4); RBC 3.29 XMIL (4.2-5.4)
[2016-12-01 05:58] LABS: AGAP 15; ALBUMIN 2.3 g/dL (3.5-5.0); ALKALINE PHOSPHATASE 154 U/L (32-104); BUN 7 mg/dL (8-22); CALCIUM 8.4 mg/dL (8.8-10.2); CHLORIDE 103 mmol/L (98-107); COSMO 282; GOT 13 U/L (10-30); GPT < 5 U/L (10-36); MAGNESIUM 1.5 mg/dL (1.5-2.7); POTASSIUM 3.3 mmol/L (3.5-5.1); SODIUM 142 mmol/L (136-145); TCO2 24 mmol/L (25-35); TOTAL BILIRUBIN 0.21 mg/dL (0.20-1.00); TOTAL PROTEIN 6.2 g/dL (6.3-8.3)
[2016-12-01] MEDS: XANAX PO PRN ×3 (06:16→20:59)
[2016-12-01] MEDS: MUCOMYST 20% INH SCH ×2 (07:20→19:16)
[2016-12-01] MEDS: PROZAC PO SCH (09:17)
[2016-12-01] MEDS: MIRALAX PO SCH (09:18)
[2016-12-01] MEDS: NICODERM PATCH TD SCH (09:18)
[2016-12-01] MEDS ORDERED: BUMEX PO ONE (09:31)
--- NOTE | 2016-12-01 11:46 | PROGRESS NOTE ---
DATE: 12/01/2016 Ms. Kellie Mariee is a 46-year-old, slim, white female, status post left lung resection per Dr. Kumar. She remains weak and has a cough. She seems confused at times. Her left-sided incision is dressed. We will encourage her to take better p.o. intake and increase her activity. She does not appear to have any shortness of breath. cc: MD Bruno Beaulieu MD
[2016-12-01] MEDS: SODIUM CHLORIDE 0.9% INJ SCH (11:48)
[2016-12-01] MEDS: PROTONIX IV SCH (11:48)
--- NOTE | 2016-12-01 11:55 | PROGRESS NOTE ---
DATE: 12/01/2016 SUBJECTIVE: The patient states she is feeling a little bit better although she is disoriented at times. Speech is a little sluggish this morning. She is sitting up in the in the bed eating breakfast. Denies any chest pains or palpitations. Does state that she is short of breath. She does not want to start using incentive spirometry. She asked if there was something else that would do the same that she did have to "fool with." OBJECTIVE: Vital Signs: Temperature 98, pulse 107, respiratory 15, blood pressure 127/80. Satting 97% on 3 L. General: Patient is awake, alert, oriented although she is easily confused. HEENT: Normocephalic. Neck: Supple. Cardiovascular: Decreased breath sounds with bilateral coarse rhonchi. Occasional crackles throughout on today's exam slightly worse than yesterday's exam. Abdomen: Soft. Nondistended. No masses. Extremities: Moves all extremities. No edema. Neurologic: No changes. DIAGNOSTIC DATA: WBC 16, hemoglobin and hematocrit 9 and 31. Potassium 3.3. Creatinine 1.6. Yesterday's chest x-ray demonstrated increased pulmonary edema. ASSESSMENT: 1. Left lower lobe lung cancer status post lobectomy. 2. Hypoxic respiratory failure. 3. Hypokalemia. 4. Chronic opiate abuse and current withdrawal improved with restarting her opiates on the although she has not received any since then. Certainly will need to continue to follow for withdrawal type symptoms. 5. Chronic nicotine with nicotine dependence. PLAN: We will continue physical therapy. We will add Bumex today as her chest x-ray yesterday and her exam today certainly appears to be fluid overloaded, although her serum creatinine is actually mildly elevated compared to her baseline. We will replace her potassium. Continue Protonix IV. Continue her Zosyn. We will repeat chest x-ray and labs in the a.m. We will add incentive spirometry and chest percussion. We will add incentive spirometry as she is not moving about and certainly appears to be developing worsening pulmonary status. cc: MD Bruno Nesbitt MD
[2016-12-01] MEDS: SOLU-MEDROL IV SCH ×2 (13:02→20:58)
[2016-12-01] MEDS: ZOFRAN IV PRN ×2 (15:58→20:58)
[2016-12-01] MEDS: ZYVOX PO SCH (20:59)
[2016-12-02] MEDS: ATIVAN IV PRN ×3 (00:46→16:44)
[2016-12-02] MEDS: BUPRENEX IV PRN ×6 (00:51→21:54)
[2016-12-02] MEDS: ZOSYN 3.375 GM/NS 3.375 GM/50 ML IVPB IV SCH ×4 (03:02→21:55)
[2016-12-02] MEDS: XANAX PO PRN ×3 (03:02→21:55)
[2016-12-02] MEDS: ZOFRAN IV PRN (03:02)
[2016-12-02] MEDS: DUONEB (A & A) INH SCH ×5 (03:28→20:30)
[2016-12-02] MEDS: SOLU-MEDROL IV SCH ×3 (05:06→21:54)
[2016-12-02 05:59] LABS: HEMATOCRIT 31.2 % (37.0-47.0); MCH 30.2 PG (27-31); MCHC 32.1 g/dL (33-37); MCV 94.3 FL (81-99); MPV 8.7 FL (7.4-10.4); RBC 3.31 XMIL (4.2-5.4)
[2016-12-02 06:23] LABS: ALBUMIN 2.8 g/dL (3.5-5.0); CALCIUM 9.1 mg/dL (8.8-10.2); MAGNESIUM 1.4 mg/dL (1.5-2.7); POTASSIUM 3.1 mmol/L (3.5-5.1); TOTAL BILIRUBIN 0.25 mg/dL (0.20-1.00); TOTAL PROTEIN 7.4 g/dL (6.3-8.3)
[2016-12-02] MEDS: MUCOMYST 20% INH SCH ×2 (07:36→20:30)
[2016-12-02] MEDS ORDERED: KLOR-CON PO ONE (08:40)
--- NOTE | 2016-12-02 09:29 | PROGRESS NOTE ---
DATE: 12/02/2016 Ms. Kellie Mariee is a 46-year-old female who has undergone a left lung resection for cancer per Dr. John Kumar. She has been transferred yesterday from [facility] to [address] [place] [address]. This morning, she is awake and eating a regular breakfast. Her heart rate is 96-111, blood pressure was 131/78, O2 saturation 92%. She has no work of breathing. Her white blood cell count yesterday was 13, hematocrit 31%. Her BUN was 11, creatinine 2.1. Liver function tests were within normal limits. PLAN: Her creatinine has increased from 1.6-2.1. She is eating a regular diet. We need to increase her activity. I will recheck a Chem 7 tomorrow. We will keep her hospitalized again today. It must be noted that she is receiving IV Zosyn. Her vancomycin has been stopped. cc: MD Bruno Beaulieu MD
[2016-12-02] MEDS: PROZAC PO SCH (09:44)
[2016-12-02] MEDS: NICODERM PATCH TD SCH (09:44)
[2016-12-02] MEDS: ZYVOX PO SCH ×2 (09:44→21:55)
[2016-12-02] MEDS: MIRALAX PO SCH (09:45)
[2016-12-02] MEDS ORDERED: MAGNESIUM SULFATE 2 GM/S.W.I. 2 GM/50 ML IVPB IV ONE (12:13)
--- NOTE | 2016-12-02 13:11 | Diag Imaging Result Document ---
PROCEDURE NAME: CHEST-2 VIEWS - 12/02/2016 CHEST, 2 VIEWS: FINDINGS: Compared with 1 view chest of 11/30/2016. PICC line remains in place. There are bilateral infiltrates which appear mildly decreased on the right and stable on the left. There is a small left pleural effusion which appears stable. There is no pneumothorax identified. There is an emphysematous bulla at the right apex. Heart size is normal. IMPRESSION: 1. Bilateral infiltrates which appear mildly decreased on the right and stable on the left. 2. Stable small left pleural effusion.
--- NOTE | 2016-12-02 13:41 | PROGRESS NOTE ---
DATE: 12/02/2016 SUBJECTIVE: Patient notes that she is stressed due to her uncle being sick. She hopes that she can go home soon. OBJECTIVE: Vital Signs: She is afebrile. Temperature 98.5 degrees, pulse 102 to 97. Respiratory rate 19, blood pressure 140/72, satting 95% on 3 L. General: Patient is awake, alert. She is in no current respiratory distress. She is sitting in the bed. She has eaten her entire breakfast. HEENT: Normocephalic, atraumatic. Neck: Supple. Cardiovascular: Regular rate. Chest: Decreased breath sounds but overall relatively clear much improved from yesterday's exam. She has less rhonchi noted. Abdomen: Soft. Extremities: Moves all extremities. Neurologic: No changes. DIAGNOSTIC DATA: WBC is 12. Hemoglobin and hematocrit 10 and 31. Potassium 3.1, creatinine mildly elevated at 2.1 compared to her baseline of 0.4. Magnesium 1.4. ASSESSMENT: 1. Moderate protein calorie malnutrition. Albumin 2.8. 2. Acute renal failure secondary to volume depletion. We will give her gentle hydration with normal saline and recheck in the a.m. 3. Hypoxic respiratory failure. 4. Hypomagnesemia. We will replace. 5. Hypokalemia will replace and recheck in the a.m. 6. Acute stress reaction. 7. Left lower lobe lung cancer status post lobectomy improving. PLAN: We will continue to follow. Further orders as needed. cc: MD Bruno Nesbitt MD
[2016-12-02] MEDS: PROTONIX IV SCH (13:53)
[2016-12-02] MEDS: SODIUM CHLORIDE 0.9% INJ SCH (13:54)
[2016-12-02] MEDS: NS 1,000 ML IV SCH (14:15)
[2016-12-03] MEDS: ATIVAN IV PRN ×3 (00:14→22:35)
[2016-12-03] MEDS: ZOSYN 3.375 GM/NS 3.375 GM/50 ML IVPB IV SCH (01:40)
[2016-12-03] MEDS: DUONEB (A & A) INH SCH ×7 (03:34→23:03)
[2016-12-03] MEDS: BUPRENEX IV PRN (03:51)
[2016-12-03] MEDS: XANAX PO PRN ×3 (03:51→18:52)
[2016-12-03] MEDS: NS 1,000 ML IV SCH ×3 (04:26→23:27)
[2016-12-03] MEDS: SOLU-MEDROL IV SCH (05:38)
[2016-12-03 05:49] LABS: BASO% 0.1 % (0.0-0.8); HEMATOCRIT 29.5 % (37.0-47.0); HEMOGLOBIN 9.6 g/dL (12.0-16.0); IMM GRAN# 0.15 X1000 (0.0-0.04); IMM GRAN% 0.7 % (0.0-0.5); LYMPH# 0.61 X1000 (1.2-3.4); LYMPH% 2.8 % (20.5-51.1); MANUAL DIFF NEEDED? YES; MCH 30.8 PG (27-31); MCHC 32.5 g/dL (33-37); MCV 94.6 FL (81-99); MONO# 1.28 X1000 (0.11-0.59); MONO% 5.9 % (1.7-9.3); MPV 8.8 FL (7.4-10.4); NEUT% 90.5 % (42.2-75.2); PLT 802 X1000 (130-400); RBC 3.12 XMIL (4.2-5.4)
[2016-12-03 06:00] LABS: CALCIUM 9.1 mg/dL (8.8-10.2); POTASSIUM 3.9 mmol/L (3.5-5.1)
[2016-12-03 06:09] LABS: BANDS 4 % (0-1); LYMPHS 4 % (21-51); MONO 8 % (1-9)
[2016-12-03] MEDS: MUCOMYST 20% INH SCH ×2 (07:46→19:21)
--- NOTE | 2016-12-03 09:17 | PROGRESS NOTE ---
DATE: 12/03/2016 SUBJECTIVE: Feels well. Wants to go home. She is eating. She is more alert in her baseline mental status. Pain is well controlled on her current regimen. OBJECTIVE: Vital Signs: No fevers. Heart rate is 88, blood pressure 159/96, oxygen saturation 98% on 3 L nasal cannula. General: She is alert, oriented. Chest: Chest tube site incisions are all intact. Grant are there still. No cellulitis. Abdomen: Soft, nontender. Integument: Otherwise warm and dry. Labs: Reviewed. White count is up to 21. She was given steroids over the weekend by the pulmonary service. Hematocrit was stable at 29. Creatinine is 2.3 up from 2.1 with a baseline of 0.4. Random vancomycin level on the was 47. ASSESSMENT/PLAN: This is a 46-year-old female, status post left lower lobectomy. She is overall doing well from a surgical standpoint. She has developed an increasing creatinine which is up to 2.3. She is voiding normal amounts but I suspect this is related to vancomycin and/or Zosyn. I have stopped her antibiotics. Vancomycin was stopped over the weekend. I think her leukocytosis is from the steroids in that she has no clinical signs of infection. Stopped all antibiotics and sent urine studies including urinalysis and required for FENa calculation. I have consulted Dr. Townsend of nephrology services. Suspect as antibiotics stop, we will see this begin to resolve. We will hold off on Padilla now. She is voiding but will continue strict intake and output. She is on gentle hydration with no signs of volume overload. I suspect when her known renal function begins to improve, we will work towards discharge likely home with home O2. I will put in a social work consult to arrange home O2. cc: Bruno Kumar MD
[2016-12-03] MEDS: MIRALAX PO SCH (10:07)
[2016-12-03] MEDS: PROZAC PO SCH (10:07)
[2016-12-03] MEDS: NICODERM PATCH TD SCH (10:07)
[2016-12-03 11:00] LABS: URINE SOURCE CLEAN CATCH
[2016-12-03 11:05] LABS: BILIRUBIN URINE NEGATIVE (NEGATIVE); BLOOD URINE NEGATIVE (NEGATIVE); COLOR YELLOW; GLUCOSE URINE NEGATIVE (NEGATIVE); LEUKOCYTES URINE NEGATIVE (NEGATIVE); NITRITE URINE NEGATIVE (NEGATIVE); PH URINE 6.5; PROTEIN URINE TRACE mg/dL (NEGATIVE); SP GRAVITY URINE 1.013; TURBIDITY URINE CLEAR (CLEAR); URINE MICRO REVIEW NEEDED? YES; UROBILINOGEN URINE NORMAL (NORMAL)
[2016-12-03 11:18] LABS: UR PROT RANDOM 24.1 mg/dL; UR URIC ACID RANDOM 43.9 mg/dL (37-92)
[2016-12-03 11:25] LABS: UR EPITHELIAL CELLS >10 /HPF (<10); URINE BACTERIA NEGATIVE /HPF; URINE RBC <10 /HPF (<10); URINE WBC <10 /HPF (<10)
[2016-12-03 11:26] LABS: URINE CASTS NONE SEEN; URINE CRYSTALS NONE SEEN; URINE SMALL ROUND CELLS NONE SEEN
[2016-12-03] MEDS: PROTONIX IV SCH (12:01)
[2016-12-03] MEDS: SODIUM CHLORIDE 0.9% INJ SCH (12:01)
--- NOTE | 2016-12-03 12:23 | Diag Imaging Result Document ---
PROCEDURE NAME: US RENAL 2 (RETROPER) COMPLETE - 12/03/2016 RENAL ULTRASOUND: FINDINGS: The right kidney measures 12.4 x 4.6 x 4.2 cm. Normal renal echogenicity and cortical thickness. No stone or hydronephrosis. No renal mass. The left kidney measures 11.6 x 3.6 x 4.9 cm. Normal renal echogenicity and cortical thickness. No renal stone or hydronephrosis. No renal mass. The urinary bladder is only minimally distended. IMPRESSION: Normal renal ultrasound.
[2016-12-03] MEDS: ZOFRAN IV PRN (15:56)
[2016-12-03] MEDS: NORCO-7.5 PO PRN ×2 (15:56→20:56)
--- NOTE | 2016-12-03 17:16 | CONSULTATION ---
DATE OF CONSULTATION: 12/03/2016 REASON FOR ADMISSION: Left lower lobe lobectomy secondary to lung cancer. REASON FOR CONSULTATION: Acute renal failure. CONSULTING PHYSICIAN: Dr. Kumar HISTORY OF PRESENT ILLNESS: Ms. Mariee is a 46-year-old white female who has been hospitalized for 13 days secondary to surgery for a left lower lobe lobectomy secondary to lung cancer. The patient has a 47-[id number]-year history for tobacco use. She has known bipolar disorder. She was diagnosed with adenocarcinoma involving the left lower lobe on 09/04/2016. She states that her oncologist is Dr. Rucker. Her surgeon is Dr. Kumar, and her parts sales manager is Dr. Beal. She has undergone her left lower lobe lobectomy. Everything has been going well. She was subsequently on vancomycin and Zosyn post surgery with her vancomycin stopped over the weekend secondary to elevated creatinine. She denies chest pain. She does have some pain upon deep inspiration and cough. Otherwise, denies any palpitations. No nausea, vomiting , or diarrhea. She is able to get up in the room. She denies any weakness. No fever or chills. PAST MEDICAL AND SURGICAL HISTORY: Recurrent bipolar disorder with psychotic features with prior admissions to [facility], COPD with ongoing tobacco use. She states that she has stopped approximately 2 weeks ago from smoking. She is status post cholecystectomy. She has had bilateral tubal ligations with a partial hysterectomy. She has had a D and C in the past. FAMILY HISTORY: Positive for schizophrenia and depression, arthritis. The patient states that her mother had pancreatic and lung cancer. Father is living, but not known to her. A sister is positive for diabetes. ALLERGIES: The patient states she has current allergies to codeine and to aspirin and Lasix, the Lasix causing swelling and codeine and aspirin causing nausea and vomiting. SOCIAL HISTORY: She is currently living with a significant other. She has 2 grown daughters. She is a former smoker. No illicit drug use. No alcohol. Her current allergies are as listed. HOME MEDICATIONS: Prozac, Seroquel, oxycodone, Xanax, and phenazopyridine. Her antibiotics have been currently stopped. VITAL SIGNS: Her most recent vital signs: Temperature 98.6 degrees, blood pressure 159/96, heart rate 88, respirations 16. She is on 3 liters nasal cannula. The last recorded saturation is 98%. She has had 1397 input. The patient has been up voiding. She has not had anything recorded. She has been requested to start keeping accurate input and output. Previous chest tubes bilaterally removed on the . LABORATORY DATA: Her most recent labs, sodium 142, potassium 3.9, chloride 102 , CO2 of 23, BUN is 18, creatinine is 2.3, glucose 145, calcium is 9.1, previous magnesium 1.4. Previous TSH is 0.71 with a previous free T4 of 0.82. White count 21.57, hemoglobin 9.6, hematocrit 29.5, with a platelet count of a 802,000. Her PTT is 28.2 on the 16. Urinalysis indicates trace protein. Negative for leukocytes. Urine eosinophils are still pending. Urine electrolytes indicating her FENa score is 1.99%, thus possibly indicating acute tubular necrosis secondary to medication. Urinary eosinophils are still pending. PHYSICAL EXAMINATION: General: This is a 46-year-old white female. She is currently resting in bed. She is in no acute distress. Skin: Warm and dry. HEENT: Normocephalic , atraumatic. Conjunctivae pink. She has SARIKA. Mucous membranes moist. Neck: Supple. Trachea midline. No JVD. Cardiovascular: Regular rate and rhythm. She is without murmur or gallop. Lungs: Have popping and wheezing noises noted posterior and anterior. She remains on O2. Equal excursion, with incision noted to the left midaxillary 4th to 5th intercostal space area. Abdomen: Round, soft, nontender. Positive bowel sounds. Genitourinary: Not inspected. The patient is voiding. Extremities: Have no edema. No clubbing or cyanosis. Neurological: The patient is alert and cooperative. ASSESSMENT AND PLAN: 1. Acute kidney injury. More than likely, this is acute tubular necrosis with FENa score of 1.99%. This is secondary to neurotoxic medication of vancomycin. This is currently stopped over the weekend. Her Zosyn was stopped this morning. She continues with intravenous fluids at this time, normal saline at 100 mL an hour. We will continue to monitor. 2. Electrolytes and acid-base balance. This actually remains stable. 3. Anemia. This remains stable. 4. Leukocytosis. The patient continues on steroids. No indications for an infection. She is followed by primary care team and Dr. Kumar. I would like to thank you for allowing us to follow with this patient. Seen, data reviewed, discussed with Terrance Damico on 12/03/16. I agree with the above assessment and plan of care. rg Dictated by MAGALI South for Margarito Townsend MD cc: MAGALI South MD R. Tyler Harney, MD [facility]
[2016-12-04] MEDS: DUONEB (A & A) INH SCH ×3 (03:00→11:11)
[2016-12-04] MEDS: XANAX PO PRN ×2 (04:45→11:05)
[2016-12-04 05:48] LABS: BASO% 0.1 % (0.0-0.8); EOS% 0.7 % (0.0-10.0); HEMOGLOBIN 9.9 g/dL (12.0-16.0); IMM GRAN# 0.13 X1000 (0.0-0.04); IMM GRAN% 0.9 % (0.0-0.5); LYMPH# 1.85 X1000 (1.2-3.4); LYMPH% 12.1 % (20.5-51.1); MANUAL DIFF NEEDED? NO; MCH 30.6 PG (27-31); MCHC 31.9 g/dL (33-37); MCV 95.7 FL (81-99); MONO# 1.67 X1000 (0.11-0.59); MPV 8.7 FL (7.4-10.4); NEUT% 75.2 % (42.2-75.2); PLT 819 X1000 (130-400); RBC 3.24 XMIL (4.2-5.4)
[2016-12-04 05:59] LABS: ALBUMIN 2.5 g/dL (3.5-5.0); CALCIUM 8.3 mg/dL (8.8-10.2); POTASSIUM 2.8 mmol/L (3.5-5.1)
[2016-12-04] MEDS: NORCO-7.5 PO PRN (06:39)
[2016-12-04] MEDS: NS 1,000 ML IV SCH ×2 (06:45→12:50)
[2016-12-04] MEDS: MUCOMYST 20% INH SCH (07:54)
--- NOTE | 2016-12-04 08:08 | Diag Imaging Result Document ---
PROCEDURE NAME: CHEST-2 VIEWS - 12/04/2016 CHEST X-RAY, 2 VIEWS: COMPARISON: 12/02/2016. FINDINGS: Stable ill-defined interstitial infiltrates bilaterally. No new infiltrates. Stable left PICC line. IMPRESSION: No change from prior.
[2016-12-04] MEDS: PROZAC PO SCH (10:06)
[2016-12-04] MEDS: MIRALAX PO SCH (10:06)
[2016-12-04] MEDS: NICODERM PATCH TD SCH (10:06)
[2016-12-04] MEDS: PROTONIX IV SCH (12:50)
[2016-12-04 13:10] VITALS: BP 154/88
--- NOTE | 2016-12-04 15:29 | PROGRESS NOTE ---
DATE: 12/04/2016 TIME SEEN: 0835. SUBJECTIVE: Ms. Mariee is currently resting in bed. She states that she is just not feeling well. She states that it hurts to take big, deep breaths. Otherwise, she denies chest pain. PHYSICAL EXAMINATION: Vital Signs: Her most recent vital signs are temperature 99.4 degrees, blood pressure 146/84, heart rate 92, and respirations are 16. She is on 3L nasal cannula. Last recorded saturation 94%. She has had 1752 in. She has had 2000 out per void. General: This is a 46-year-old white female. She is resting quietly in bed. She is in no acute distress. Skin: Warm and dry. HEENT: Normocephalic, atraumatic. Conjunctivae pink. She has SARIKA. Mucous membranes moist. Neck: Supple. Trachea midline. No JVD. Cardiovascular: Regular rate and rhythm. She is without murmur or gallop. Lungs: Clear to auscultation anterior. She does continue with popping and wheezing noted, left greater than right. She remains on O2. Equal excursion. Incision noted to the left maxillary 4th to 5th intercostal space. Abdomen: Round, soft, nontender. Positive bowel sounds. Genitourinary: Not inspected. Patient is voiding adequate amount. Extremities: No edema. No clubbing or cyanosis. Integumentary: As mentioned, a healing wound to the left chest wall. No rashes or lesions evident. Neurological: Alert and oriented x3. LABORATORIES: Sodium 144, potassium 2.8, chloride 105, CO2 of 23, BUN 19, creatinine 2.2, glucose 130, anion gap 16, calcium 8.3, phosphorus 3, albumin 2.5. White count 15.25, hemoglobin 9.9, hematocrit 31, with a platelet count of 819,000. Patient has urine electrolytes indicating a FENa score of 1.99%. ASSESSMENT AND PLAN: 1. Acute kidney injury. Patient again has a FENa score of 1.99%, indicating more acute tubular necrosis, possibly secondary to nephrotoxic medications. Her vancomycin and Zosyn have currently been discontinued. She remains on IV fluids. Her creatinine is slowly improved today. The patient has adequate urine out. 2. Electrolytes and acid-base balance. These are stable. 3. Anemia. This is stable. 4. Leukocytosis, more than likely secondary to being on steroids. She remains afebrile. Dr. Kumar is following. I would like to thank you for allowing us to follow with this patient. Data reviewed, discussed with Terrance Damico on 12/04/16. I agree with the above assessment and plan of care. rg Dictated by MAGALI South for Margarito Townsend MD cc: MAGALI South MD R. Tyler Harney, MD [facility]
[2016-12-04] MEDS ORDERED: KLOR-CON PO SCH (21:00)
--- NOTE | 2016-12-05 07:46 | DISCHARGE SUMMARY ---
ADMISSION DATE: 11/20/2016 DISCHARGE DATE: 12/04/2016 HISTORY OF PRESENT ILLNESS AND HOSPITAL COURSE: This is a 46-year-old female with left lower lobe adenocarcinoma with negative staging workup for metastatic disease. PFTs were adequate and she underwent a left lower lobectomy on November. Postoperative day 1, she did develop increasing work of breathing. Chest x-ray showed complete atelectasis of the left lung consistent with mucous plugging. She was intubated and bronchoscopy was performed. She had a several day period of requiring intubation related to extreme anxiety and agitation, and likely drug withdrawal. She was treated with IV equivalents of her home dose, although we suspect it is much higher than what she admitted to. She was ultimately able to be extubated. She never had an air leak in her chest tubes and output was appropriate with good expansion of her lung from the time of the bronchoscopy forward. When her mental status allowed, we did ultimately remove her chest tubes sequentially with no reaccumulation of pneumothorax. She was treated with antibiotics throughout her course for some bilateral opacities she had, concerning for pneumonia. She had a persistent leukocytosis but this improved. Two days prior to her discharge, she did develop an acute rise in her creatinine, felt to be vancomycin related. All antibiotics were stopped. Dr. Townsend of nephrology was engaged. After stopping the antibiotics, her creatinine plateaued and began to fall. She remained nonoliguric through all this. Her mental status improved very well. On the day of her discharge, her incision looked good, both the chest tube sites and incisions. Her mental status was normal. She was ambulating and tolerating a diet, and voiding without difficulty, and was felt safe for discharge home with her family who is very involved in her care. DISCHARGE MEDICATIONS: She was given prescriptions for [place], Colace, and albuterol ipratropium MDI. She will also continue taking her other home medications. DISCHARGE INSTRUCTIONS: She can see me back in 1 week for staple removal and Dr. Townsend and they can follow up to monitor her creatinine as an outpatient. If she develop fevers, worsening of her breathing, shortness of breath, or redness from her incision, she will call the office or come to the emergency department. Otherwise, avoid heavy lifting. Diet as tolerated. Medications at home plus [place], Colace, and albuterol ipratropium metered-dose inhaler. cc: Bruno Kumar MD
== END 2016-12-04 14:44 | disposition home or self-care (01) ==
LOC: SURHOLD 03:37 → ICU 11:24 → 3S 11-29 14:03 → 4N 12-01 15:01
PROVIDERS: ADMIT Surgery; ATTEND Surgery
PROC: [UNRECOGNIZED PROCEDURE] (2016-11-20 09:00)